=== PATIENT | female | born 1930 | race Caucasian/White ===

== ENCOUNTER 2018-02-02 00:04 | Inpatient (IN) ==
[2018-02-02] MEDS ORDERED: Naloxone Inj 2 MG/2 ML Vial ONE (00:14)
[2018-02-02] MEDS: Propofol 1000 mg/100 ml Inj 1,000 MG/100 ML BOTTLE IV.CONT PRN ×3 (00:17→17:06)
[2018-02-02] MEDS ORDERED: Succinylcholine Inj 200 MG/10 ML Vial IV.PUSH ONE (00:30)
[2018-02-02] MEDS ORDERED: Etomidate Inj 40 MG/20 ML Vial IV.PUSH ONE (00:30)
[2018-02-02] MEDS ORDERED: Propofol 1000 mg/100 ml Inj 1,000 MG/100 ML BOTTLE ONE (00:33)
--- NOTE | 2018-02-02 00:45 | ED ---
HPI General Chief Complaint: Altered Mental Status Stated Complaint: AMS Time Seen by Provider: 02/02/18 00:29 Source: patient and EMS Mode of arrival: EMS Limitations: altered mental status History of Present Illness HPI narrative: Patient is in 87-year-old female, on Eliquis, who presents with complaint of altered mental status. Per EMS she was discharged from another hospital this evening and went to her nursing facility. He was then found by nursing staff with decreased responsiveness and EMS reports that her GCS was 9 on their arrival. Blood glucose was greater than 100 and she was sinus tachycardia on the monitor but otherwise stable. On arrival here the patient will intermittently moan but does not provide any other information. MD complaint: Reports altered mental status and decreased responsiveness Onset (ago): unknown Consistency of symptoms: unknown Related Data Allergies Allergy/AdvReac Type Severity Reaction Status Date / Time No Known Allergies Allergy Verified 02/02/18 00:29 Review of Systems ROS Unobtainable ROS Unobtainable: unobtainable due to mental status PMFSH Medical History Medical History A-fib (Acute) Hypercholesterolemia (Acute) Hypertension (Acute) Hypothyroidism (Acute) Pneumonia (Acute) Surgical history unknown (Acute) Family History Family History Other Family history unobtainable Social History Social History Substance History: Unable to Obtain Smoking Status: Unknown if ever smoked How Often Do You Have a Drink Containing Alcohol: Unable to Obtain Exam Narrative Exam Narrative: GENERAL: Elderly female, unresponsive SKIN: Focused skin assessment warm/dry. Multiple bruises. HEAD: Atraumatic. Normocephalic. EYES: Pupils equal and round, approximately 2-3 mm and reactive. No scleral icterus. No injection or drainage. ENT: No nasal bleeding or discharge. Mucous membranes pink and dry. NECK: Trachea midline. No JVD. CARDIOVASCULAR: Tachycardic but regular. No murmur appreciated. Intact and equal pulses. RESPIRATORY: No accessory muscle use. Rhonchi and diminished breath sounds throughout. GASTROINTESTINAL: Abdomen soft, distended. Hepatic and splenic margins not palpable. MUSCULOSKELETAL: No obvious deformities. No clubbing. No cyanosis. Slight edema present in all 4 extremities. NEUROLOGICAL: Moaning incoherently. She externally rotated her left arm once but is otherwise not moving any of her extremities. PSYCHIATRIC: Unable to assess. Course Initial Documented Vital Signs Respiratory Rate 14 02/02/18 00:05 Last Documented Vital Signs Temperature 97.4 F L 02/02/18 02:11 Pulse Rate 84 02/02/18 02:11 Respiratory Rate 14 02/02/18 02:11 Blood Pressure 84/62 L 02/02/18 02:11 Pulse Oximetry 99 02/02/18 01:30 Procedures Intubation Sedative: etomidate Mg Given: 20 Paralytic: succinylcholine Mg Given: 150 Laryngoscope: Paras ET Tube Size: 7.5 ET Tube Uncuffed: Yes Tube Secured Depth (cm): 22 Tube Secured Location: lips Tube Placement Confirmation: visualized tube passing through cords, equal breath sounds bilaterally, no breath sounds over epigastrium and confirmation by capnometry Patient Tolerated Procedure: well Intubation Complications: hypoxia Critical Care Time Critical Care Time: Yes Total Critical Care Time: 35 Attestation: Aggregate critical care time was 35 minutes. Time to perform other separately billable procedures was not included in the critical care time. My time did not include minutes spent treating any other patients simultaneously or on activities that did not directly contribute to the patient's treatment. The services I provided to this patient were to treat and/or prevent clinically significant deterioration that could result in: , deterioration, disability, aspiration. I provided critical care services requiring my management, as noted below: Chart data review, documentation time, medication orders and management, vital sign assessments/reviewing monitor data, ordering and reviewing lab tests, ordering and interpreting/reviewing x-rays and diagnostic studies, care of the patient and discussion of the patient with the admitting physicians. Medical Decision Making MDM Narrative Medical decision making narrative: Patient is an 87 yof who presents with altered mental status after being discharged from another facility. GCS < 8 on arrival at which time she was intubated for airway protection. BP was in the 180s and she was started on propofol for sedation. CT head unremarkable. CXR concerning for pneumonia at which time blood cultures, lactate and antibiotics were ordered. MAPs > 65 (with BP still elevated) thus she was not given large fluid boluses as her cardiac function is unknown. She has been admitted to the ICU under Dr Carrera, [employer] consultant. Records from OSH were obtained and showed she was discharged < 24 hours ago after an admission for pneumonia. Medical Screen Exam Complete: Yes Emergency Medical Condition: Yes Differential Diagnosis Differential Diagnosis: Differential diagnosis includes but is not limited to intracranial hemorrhage, acute coronary syndrome, medication overdose, electrolyte abnormality. Medical Records Medical records reviewed: Yes I reviewed the patient's medical records. Lab Data Lab results reviewed: Yes I reviewed the patient's lab results. Result diagrams: 02/02/18 00:45 02/02/18 00:45 Lab Results 02/02/18 02/02/18 02/02/18 Range/Units 00:18 00:45 00:45 WBC 15.9 H (4.0-11.0) th/mm3 RBC 3.64 L (4.00-5.30) mil/mm3 Hgb 12.5 (11.6-15.3) gm/dL Hct 36.6 (35.0-46.0) % MCV 100.5 H (80.0-100.0) fL MCH 34.3 H (27.0-34.0) pg MCHC 34.1 (32.0-36.0) % RDW 15.0 (11.6-17.2) % Plt Count 338 (150-450) th/mm3 MPV 8.2 (7.0-11.0) fL Prelim Diff (Auto) Slide review pending Neut % (Auto) 80.4 H (16.0-70.0) % Lymph % (Auto) 11.9 (9.0-44.0) % Knox % (Auto) 7.2 (0.0-8.0) % Eos % (Auto) 0.1 (0.0-4.0) % Baso % (Auto) 0.4 (0.0-2.0) % Neut # (Auto) 12.8 H (1.8-7.7) th/mm3 Lymph # (Auto) 1.9 (1.0-4.8) th/mm3 Knox # (Auto) 1.1 H (0.0-0.9) th/mm3 Eos # (Auto) 0.0 (0.0-0.4) th/mm3 Baso # (Auto) 0.1 (0.0-0.2) th/mm3 WBC Differential . Diff Scan Auto diff confirmed Differential Comment . Platelet Estimate Normal (Normal) Platelet Morphology Normal (Normal) Sodium 137 (136-145) meq/L Potassium 4.1 (3.5-5.1) meq/L Chloride 100 (98-107) meq/L Carbon Dioxide 27.5 (21.0-32.0) meq/L Anion Gap 10 (5-15) meq/L BUN 15 (7-18) mg/dL Creatinine 0.56 (0.50-1.00) mg/dL Estimated GFR Greater than 89 (>89) mL/min POC Glucose 116 H (68-110) mg/dl Random Glucose 121 H (74-106) mg/dL Lactic Acid (0.4-2.0) mmol/L Calcium 8.6 (8.5-10.1) mg/dL Magnesium 1.9 (1.5-2.5) mg/dL Total Bilirubin 0.3 (0.2-1.0) mg/dL AST 49 H (15-37) U/L ALT 58 H (10-53) U/L Alkaline Phosphatase 38 L (45-117) U/L Ammonia (11-32) mcmol/L Total Creatine Kinase 76 (26-192) U/L Troponin I 0.03 (0.02-0.05) ng/mL Total Protein 6.0 L (6.4-8.2) g/dL Albumin 2.2 L (3.4-5.0) g/dL TSH 1.450 (0.358-3.740) uIU/mL Urine Color (Yellw/Straw) Urine Clarity (Clear) Urine pH (5.0-8.5) Ur Specific [place] (1.002-1.035) Urine Protein (Neg-Trace) mg/dL Urine Glucose (UA) (Negative) mg/dL Urine Ketones (Negative) mg/dL Urine Occult Blood (Negative) Urine Nitrate (Negative) Urine Bilirubin (Negative) Urine Urobilinogen (Less than 2) mg/dL Ur Leukocyte Esterase (Negative) Urine RBC (0-3) /hpf Urine WBC (0-5) /hpf Ur Squamous Epith Cells (0-5) /hpf Urine Bacteria (None) /hpf Hyaline Casts (0-3) /lpf Granular Casts (None) /lpf Urine Mucus (Occasional) /lpf Micro UA Comment Ur Microscopic Review Urine Culture Comments Urine Opiates Screen (Neg) Ur Barbiturates Screen (Neg) Ur Amphetamines Screen (Neg) U Benzodiazepines Scrn (Neg) Urine Cocaine Screen (Neg) U Cannabinoids Screen (Neg) 02/02/18 02/02/18 02/02/18 Range/Units 00:55 00:55 00:55 WBC (4.0-11.0) th/mm3 RBC (4.00-5.30) mil/mm3 Hgb (11.6-15.3) gm/dL Hct (35.0-46.0) % MCV (80.0-100.0) fL MCH (27.0-34.0) pg MCHC (32.0-36.0) % RDW (11.6-17.2) % Plt Count (150-450) th/mm3 MPV (7.0-11.0) fL Prelim Diff (Auto) Neut % (Auto) (16.0-70.0) % Lymph % (Auto) (9.0-44.0) % Knox % (Auto) (0.0-8.0) % Eos % (Auto) (0.0-4.0) % Baso % (Auto) (0.0-2.0) % Neut # (Auto) (1.8-7.7) th/mm3 Lymph # (Auto) (1.0-4.8) th/mm3 Knox # (Auto) (0.0-0.9) th/mm3 Eos # (Auto) (0.0-0.4) th/mm3 Baso # (Auto) (0.0-0.2) th/mm3 WBC Differential Diff Scan Differential Comment Platelet Estimate (Normal) Platelet Morphology (Normal) Sodium (136-145) meq/L Potassium (3.5-5.1) meq/L Chloride (98-107) meq/L Carbon Dioxide (21.0-32.0) meq/L Anion Gap (5-15) meq/L BUN (7-18) mg/dL Creatinine (0.50-1.00) mg/dL Estimated GFR (>89) mL/min POC Glucose (68-110) mg/dl Random Glucose (74-106) mg/dL Lactic Acid 2.8 H (0.4-2.0) mmol/L Calcium (8.5-10.1) mg/dL Magnesium (1.5-2.5) mg/dL Total Bilirubin (0.2-1.0) mg/dL AST (15-37) U/L ALT (10-53) U/L Alkaline Phosphatase (45-117) U/L Ammonia 37 H (11-32) mcmol/L Total Creatine Kinase (26-192) U/L Troponin I (0.02-0.05) ng/mL Total Protein (6.4-8.2) g/dL Albumin (3.4-5.0) g/dL TSH (0.358-3.740) uIU/mL Urine Color Yellow (Yellw/Straw) Urine Clarity Clear (Clear) Urine pH 5.0 (5.0-8.5) Ur Specific [place] 1.028 (1.002-1.035) Urine Protein 30 H (Neg-Trace) mg/dL Urine Glucose (UA) Negative (Negative) mg/dL Urine Ketones Negative (Negative) mg/dL Urine Occult Blood Negative (Negative) Urine Nitrate Negative (Negative) Urine Bilirubin Negative (Negative) Urine Urobilinogen Less than 2 (Less than 2) mg/dL Ur Leukocyte Esterase Negative (Negative) Urine RBC 1 (0-3) /hpf Urine WBC 1 (0-5) /hpf Ur Squamous Epith Cells <1 (0-5) /hpf Urine Bacteria Rare H (None) /hpf Hyaline Casts 23 (0-3) /lpf Granular Casts 19 (None) /lpf Urine Mucus Few H (Occasional) /lpf Micro UA Comment Cath-culture ind Ur Microscopic Review Not Reportable Urine Culture Comments Cath-cult indicated Urine Opiates Screen (Neg) Ur Barbiturates Screen (Neg) Ur Amphetamines Screen (Neg) U Benzodiazepines Scrn (Neg) Urine Cocaine Screen (Neg) U Cannabinoids Screen (Neg) 02/02/18 Range/Units 01:00 WBC (4.0-11.0) th/mm3 RBC (4.00-5.30) mil/mm3 Hgb (11.6-15.3) gm/dL Hct (35.0-46.0) % MCV (80.0-100.0) fL MCH (27.0-34.0) pg MCHC (32.0-36.0) % RDW (11.6-17.2) % Plt Count (150-450) th/mm3 MPV (7.0-11.0) fL Prelim Diff (Auto) Neut % (Auto) (16.0-70.0) % Lymph % (Auto) (9.0-44.0) % Knox % (Auto) (0.0-8.0) % Eos % (Auto) (0.0-4.0) % Baso % (Auto) (0.0-2.0) % Neut # (Auto) (1.8-7.7) th/mm3 Lymph # (Auto) (1.0-4.8) th/mm3 Knox # (Auto) (0.0-0.9) th/mm3 Eos # (Auto) (0.0-0.4) th/mm3 Baso # (Auto) (0.0-0.2) th/mm3 WBC Differential Diff Scan Differential Comment Platelet Estimate (Normal) Platelet Morphology (Normal) Sodium (136-145) meq/L Potassium (3.5-5.1) meq/L Chloride (98-107) meq/L Carbon Dioxide (21.0-32.0) meq/L Anion Gap (5-15) meq/L BUN (7-18) mg/dL Creatinine (0.50-1.00) mg/dL Estimated GFR (>89) mL/min POC Glucose (68-110) mg/dl Random Glucose (74-106) mg/dL Lactic Acid (0.4-2.0) mmol/L Calcium (8.5-10.1) mg/dL Magnesium (1.5-2.5) mg/dL Total Bilirubin (0.2-1.0) mg/dL AST (15-37) U/L ALT (10-53) U/L Alkaline Phosphatase (45-117) U/L Ammonia (11-32) mcmol/L Total Creatine Kinase (26-192) U/L Troponin I (0.02-0.05) ng/mL Total Protein (6.4-8.2) g/dL Albumin (3.4-5.0) g/dL TSH (0.358-3.740) uIU/mL Urine Color (Yellw/Straw) Urine Clarity (Clear) Urine pH (5.0-8.5) Ur Specific [place] (1.002-1.035) Urine Protein (Neg-Trace) mg/dL Urine Glucose (UA) (Negative) mg/dL Urine Ketones (Negative) mg/dL Urine Occult Blood (Negative) Urine Nitrate (Negative) Urine Bilirubin (Negative) Urine Urobilinogen (Less than 2) mg/dL Ur Leukocyte Esterase (Negative) Urine RBC (0-3) /hpf Urine WBC (0-5) /hpf Ur Squamous Epith Cells (0-5) /hpf Urine Bacteria (None) /hpf Hyaline Casts (0-3) /lpf Granular Casts (None) /lpf Urine Mucus (Occasional) /lpf Micro UA Comment Ur Microscopic Review Urine Culture Comments Urine Opiates Screen Neg (Neg) Ur Barbiturates Screen Neg (Neg) Ur Amphetamines Screen Neg (Neg) U Benzodiazepines Scrn Pos H (Neg) Urine Cocaine Screen Neg (Neg) U Cannabinoids Screen Neg (Neg) Imaging Data Attestation: I personally reviewed and interpreted this imaging study as follows : Radiologist's impression: Chest X-Ray 02/02/18 00:29 CONCLUSION: 1. ET tube tip in good position. 2. Consolidative infiltrates in the right upper and bilateral lower lungs. Head CT 02/02/18 00:29 CONCLUSION: 1. No acute findings in the brain. 2. Age-appropriate atrophy. . Cervical Spine CT 02/02/18 00:30 CONCLUSION: 1. No evidence of fracture or compression deformity. 2. Moderate severity degenerative changes throughout the cervical spine similar to recent MRI. 3. Right pleural effusion and areas of consolidation in the right upper lung. Chest X-Ray 02/02/18 02:37 CONCLUSION: Central line in good position. No evidence of pneumothorax. Discharge Plan Discharge Disposition Patient Disposition: 30 Still Patient Discharge Condition Condition: Critical Discharge Details Diagnosis: Pneumonia, Sepsis, Acute alteration in mental status, Respiratory failure Physicians Team ED Provider: Milagro Chavez Primary Care Provider: Cam Murillo Attending Provider: Brooke Carrera Discharge Interventions Interventions: Vital Signs Last Done: 02/02/18 02:11 Status ED Status: Admitted Patient
--- NOTE | 2018-02-02 00:55 | XR ---
EXAM DATE: 02/02/2018 12:52 AM EDT AGE/SEX: 87 years / Female INDICATIONS: Status post ET tube placement. CLINICAL DATA: This is the patient's initial encounter. Patient reports that signs and symptoms have been present for 1 day and indicates a pain score of Nonresponsive. MEDICAL/SURGICAL HISTORY: Non-responsive. Non-responsive. COMPARISON: No prior exams available for comparison. FINDINGS: ET tube tip is 3 cm above the gorge. Gastric tube traverses the [id number]. Patchy partially cons olidative infiltrates are present in the right upper lobe, left lower lobe and right lower lobe. Ther e is loss of delineation of both hemidiaphragms. The heart is upper limits normal size. No evidence o f pneumothorax. CONCLUSION: 1. ET tube tip in good position. 2. Consolidative infiltrates in the right upper and bilateral lower lungs. Electronically signed by: Zion Galeano MD 02/02/2018 12:54 AM EDT
[2018-02-02 00:56] LABS: Baso # (Auto) 0.1 th/mm3 (0.0-0.2); Baso % (Auto) 0.4 % (0.0-2.0); Eos % (Auto) 0.1 % (0.0-4.0); Hematocrit 36.6 % (35.0-46.0); Hemoglobin 12.5 gm/dL (11.6-15.3); Lymph # (Auto) 1.9 th/mm3 (1.0-4.8); Lymph % (Auto) 11.9 % (9.0-44.0); Mean Corpuscular HGB Conc 34.1 % (32.0-36.0); Mean Corpuscular Hemoglobin 34.3 pg (27.0-34.0); Mean Corpuscular Volume 100.5 fL (80.0-100.0); Mean Platelet Volume 8.2 fL (7.0-11.0); Mono # (Auto) 1.1 th/mm3 (0.0-0.9); Mono % (Auto) 7.2 % (0.0-8.0); Neut # (Auto) 12.8 th/mm3 (1.8-7.7); Neut % (Auto) 80.4 % (16.0-70.0); Platelet Count 338 th/mm3 (150-450); Red Blood Count 3.64 mil/mm3 (4.00-5.30); White Blood Count 15.9 th/mm3 (4.0-11.0)
[2018-02-02] MEDS ORDERED: Vancomycin Inj 1,000 MG in Sodium Chlor 0.9% Inj 250 ML IV.SIG STA ×2 (00:58→01:41)
[2018-02-02] MEDS ORDERED: Piperacil/Tazo 4.5 GM Premix 4.5 GM/100 ML BAG IV.SIG STA (00:58)
[2018-02-02] MEDS ORDERED: Azithromycin Inj 500 MG in Sodium Chlor 0.9% Inj 250 ML IV.SIG STA (00:58)
[2018-02-02] MEDS ORDERED: Naloxone Inj 2 MG/2 ML Vial IV.PUSH ONE (01:16)
--- NOTE | 2018-02-02 01:18 | P.HPCC ---
History of Present Illness Service: Critical care medicine Primary Care Physician: Cam Murillo DO Chief Complaint: Altered mental status History of Present Illness: 87-year-old female with past medical history of hypertension, hyperlipidemia, atrial fibrillation recently prescribed anticoagulation with Eliquis, hypothyroidism who was brought to [facility] emergency department from [facility] via [facility] due to altered mental status. She had been admitted to [facility] earlier in the day with GCS 15 after recent hospitalization at [facility]. When vitals were checked at ~23: 30 she was noted to have GCS 9. She was moaning on arrival and was given Narcan 2 mg IV without improvement. She was intubated for airway protection. CXR demonstrates right upper/middle and lower lobe opacities and left basilar opacity. She was given Zosyn and Vancomycin in the ED. She reportedly was more alert following intubation but did have ABG so unknown if she was hypercapneic. She was admitted to [facility], [place] 01/29-02/01 after presenting with generalized weakness and fever. She was found to have pneumonia and new onset atrial fibrillation with RVR. She was given Cardizem for rate control. She had mild troponin elevation (0.337). She underwent diagnostic cardiac catheterization by Dr. Ortiz, report is not available but impression was demand ischemia. 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 She was prescribed Eliquis at discharge. She was treated for CAP with ceftriaxone and azithromycin. She had a CT abd/pelvis on 01/28 that showed no acute abnormality. She had cholelithiasis and bilateral renal cysts. There were bilateral pleural effusions. - Diagnosis (1) Respiratory failure (2) Encephalopathy acute (3) Macrocytosis without anemia (4) HCAP (healthcare-associated pneumonia) (5) Severe sepsis (6) Leukocytosis (7) Atrial fibrillation (8) Essential (primary) hypertension (9) HLD (hyperlipidemia) (10) Hypothyroidism (11) Lactic acidemia (12) Pleural effusion (13) High transaminase levels (14) Hyperammonemia Review of Systems unobtainable due to endotracheal tube PMFSH - History History Provided By: Services Manager / EMT - Medical History Medical History: Medical History (Last Updated 02/02/18 @ 03:07 by Brooke Carrera MD) A-fib Hypercholesterolemia Hypertension Hypothyroidism Pneumonia Surgical history unknown - Family History Family History: Family History (Last Updated 02/02/18 @ 03:08 by Brooke Carrera MD) Other Family history unobtainable - Social History I have reviewed the patient's Social History: Yes - Tobacco History Smoking Status: Unknown if ever smoked Medications and Allergies Active Medications: Active Medications Propofol (Diprivan 1000 Mg/100 Ml Inj) 1,000 mg in 100 mls @ 0 mls/hr IV.CONT TITRATE PRN; Protocol PRN Reason: Per Protocol Azithromycin 500 mg/ Sodium (Chloride) 250 mls @ 250 mls/hr IV.SIG STAT STA Stop: 02/02/18 01:57 Vancomycin HCl 1,000 mg/ (Sodium Chloride) 260 mls @ 250 mls/hr IV.SIG STAT STA Stop: 02/02/18 02:00 Piperacillin/Tazobactam/Dextrose (Zosyn 4.5 Gm Premix) 4.5 gm in 100 mls @ 200 mls/hr IV.SIG STAT STA Stop: 02/02/18 01:27 Sodium Chloride (Ns Flush) 2 ml IV.FLUSH PRN PRN PRN Reason: FLUSH AFTER USING IV ACCESS Sodium Chloride (Ns Flush) 2 ml IV.FLUSH PRN PRN PRN Reason: FLUSH AFTER USING IV ACCESS Allergies Allergy/AdvReac Type Severity Reaction Status Date / Time No Known Allergies Allergy Verified 02/02/18 00:29 Home Medications Medication Instructions Recorded Confirmed Type Saccharomyces boulardii 250 mg PO BID 02/02/18 02/02/18 History apixaban 2.5 mg PO BID 02/02/18 02/02/18 History azithromycin 500 mg PO DAILY 02/02/18 02/02/18 History doxycycline hyclate 100 mg PO BID 02/02/18 02/02/18 History hydrochlorothiazide 25 mg PO DAILY 02/02/18 02/02/18 History levothyroxine 88 mcg PO DAILY 02/02/18 02/02/18 History lisinopril 5 mg PO DAILY 02/02/18 02/02/18 History loratadine 10 mg PO DAILY 02/02/18 02/02/18 History metoprolol succinate 25 mg PO DAILY 02/02/18 02/02/18 History naproxen 375 mg PO BID 02/02/18 02/02/18 History paroxetine HCl 40 mg PO DAILY 02/02/18 02/02/18 History simvastatin 40 mg PO QPM 02/02/18 02/02/18 History tramadol 50 mg PO BID PRN 02/02/18 02/02/18 History Results - Labs CBC & Chem 7: 02/03/18 03:44 02/03/18 17:00 Labs: Short CBC 02/02/18 Range/Units 00:45 WBC 15.9 H (4.0-11.0) th/mm3 Hgb 12.5 (11.6-15.3) gm/dL Hct 36.6 (35.0-46.0) % Plt Count 338 (150-450) th/mm3 - Imaging Impressions Chest X-Ray 02/02/18 00:29 CONCLUSION: 1. ET tube tip in good position. 2. Consolidative infiltrates in the right upper and bilateral lower lungs. Exam Vital signs: Vital Signs 02/02/18 00:44 02/02/18 00:46 02/02/18 01:05 Pulse Rate 109 H Respiratory Rate 14 14 Blood Pressure 181/107 H Pulse Oximetry 100 98 Intake & Output 02/01/18 02/01/18 02/02/18 06:59 18:59 06:59 Weight 65 kg Narrative: GENERAL: Elderly critically ill-appearing female who has been intubated. SKIN: Cool, delayed cap refill. HEAD: Atraumatic. Normocephalic. EYES: Pupils equal and round, 3 mm reactive 3 mm bilaterally. No scleral icterus. No injection or drainage. ENT: No nasal bleeding or discharge. Mucous membranes moist. NECK: Trachea midline. No JVD. CARDIOVASCULAR: Irregularly irregular, A. fib on the monitor with rate in the 80s. No murmurs rubs or gallops. RESPIRATORY: Orotracheally intubated. On PRBC. Coarse rhonchorous breath sounds bilaterally, diminished right base. GASTROINTESTINAL: Abdomen soft, non-tender, nondistended. Bowel sounds hypoactive. MUSCULOSKELETAL: Extremities without clubbing, cyanosis. Trace pedal edema NEUROLOGICAL: Septic Shock Reassessment Septic shock perfusion: reassessment completed Caprini VTE Risk Assessment Caprini VTE Risk Assessment: Moderate/High Risk (score >= 2) VTE Pharmacological Exception Reason: Documented Caprini Risk Assessment Model: Point Value = 1 Point Value = 2 Point Value = 3 Point Value = 5 Age 41-60 Minor surgery BMI > 25 kg/m2 Swollen legs Varicose veins or History of unexplained or recurrent spontaneous Oral contraceptives or hormone replacement Sepsis (< 1 month) Serious lung disease, including pneumonia (< 1 month) Abnormal pulmonary function Acute myocardial infarction Congestive heart failure (< 1 month) History of inflammatory bowel disease Medical patient at bed rest Age 61-74 Arthroscopic surgery Major open surgery (> 45 min) Laparoscopic surgery (> 45 min) Malignancy Confined to bed (> 72 hours) Immobilizing plaster cast Central venous access Age >= 75 History of VTE Family history of VTE Factor V Leiden Prothrombin [id number] Lupus anticoagulant Anticardiolipin antibodies Elevated serum homocysteine Heparin-induced thrombocytopenia Other congenital or acquired thrombophilia Stroke (< 1 month) Elective arthroplasty Hip, pelvis, or leg fracture Acute spinal cord injury (< 1 month) Prophylaxis Regimen: Total Risk Factor Score Risk Level Prophylaxis Regimen 0-1 Low Early ambulation 2 Moderate Order ONE of the following: *Sequential Compression Device (SCD) *Heparin 5000 units SQ BID 3-4 Higher Order ONE of the following medications: *Heparin 5000 units SQ TID *Enoxaparin/Lovenox 40 mg SQ daily (WT < 150 kg, CrCl > 30 mL/min) *Enoxaparin/Lovenox 30 mg SQ daily (WT < 150 kg, CrCl > 10-29 mL/min) *Enoxaparin/Lovenox 30 mg SQ BID (WT < 150 kg, CrCl > 30 mL/min) AND/OR *Sequential Compression Device (SCD) 5 or more Highest Order ONE of the following medications: *Heparin 5000 units SQ TID (Preferred with Epidurals) *Enoxaparin/Lovenox 40 mg SQ daily (WT < 150 kg, CrCl > 30 mL/min) *Enoxaparin/Lovenox 30 mg SQ daily (WT < 150 kg, CrCl > 10-29 mL/min) *Enoxaparin/Lovenox 30 mg SQ BID (WT < 150 kg, CrCl > 30 mL/min) AND *Sequential Compression Device (SCD) 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 - Other specified diseases of blood and blood-forming organs Status: Chronic (4) HCAP (healthcare-associated pneumonia) Code(s): J18.9 - Pneumonia, unspecified organism Status: Acute (5) Severe sepsis Code(s): A41.9 - Sepsis, unspecified organism; R65.20 - Severe sepsis without septic shock Status: Acute (6) Leukocytosis Code(s): D72.829 - Elevated white blood cell count, unspecified Status: Acute (7) Atrial fibrillation Code(s): I48.91 - Unspecified atrial fibrillation Status: Chronic (8) Essential (primary) hypertension Code(s): I10 - Essential (primary) hypertension Status: Chronic (9) HLD (hyperlipidemia) Code(s): E78.5 - Hyperlipidemia, unspecified Status: Chronic (10) Hypothyroidism Code(s): E03.9 - Hypothyroidism, unspecified Status: Chronic (11) Lactic acidemia Code(s): E87.2 - Acidosis Status: Acute (12) Pleural effusion Code(s): J90 - Pleural effusion, not elsewhere classified Status: Acute (13) High transaminase levels Code(s): R74.0 - Nonspecific elevation of levels of transaminase and lactic acid dehydrogenase [LDH] Status: Acute (14) Hyperammonemia Code(s): E72.20 - Disorder of urea cycle metabolism, unspecified Status: Acute - Assessment and Plan Plan: NEURO: Acute encephalopathy suspect secondary to sepsis. CT brain 02/02/18 demonstrates atrophy TSH is within normal limits. Check B12 level. Mild hyperammonemia lactulose 30 mL po . Follow-up ammonia Propofol for sedation. Versed prn. Target RASS -2. Daily sedation vacation. Hold paroxetine 80 mg p.o. daily (may require linezolid if diagnosed with MRSA pneumonia) Hold tramadol 50 mg p.o. daily RESP: Acute respiratory failure Right pleural effusion Intubated in the emergency department 26 for airway protection. CXR demonstrates R pneumonia. ETT position satisfactory DuoNeb every 6 hours Albuterol every 2 hours as needed Right pleural effusion was noted on CT C-spine. Will obtain noncontrasted CT chest. May require chest tube placement CV: Hypertension Hyperlipidemia Atrial fibrillation on chronic anticoagulation with Eliquis Lactic acidemia Monitor blood pressure. Give 1 L normal saline bolus. D5 LR at 125 mL/h. Levophed to maintain mean arterial pressure greater than 65. Obtain limited 2D echo Initial troponin negative. Will trend. Reportedly recent cardiac catheterization per Dr. Howie Ortiz at [facility], report not available but impression was demand ischemia and ?Takotsubo cardiomyopathy.. Hold metoprolol succinate 25 mg p.o. daily, lisinopril 5 mg p.o. daily, HCTZ 25 mg p.o. jojo due to hypotension. Hold simvastatin 40 mg p.o. daily due to transaminase elevation. GI: Constipation Mild transaminase elevation F/u CMP. Per nursing report no bowel movement for several days. N.p.o. currently. CT abdomen and pelvis has been ordered per ED. Low suspicion for this is source of sepsis. Will change to noncontrasted study to minimize nephrotoxicity. FEN/RENAL: Currently creatinine is normal. Monitor intake and output. Monitor electrolytes. Replace electrolytes as indicated per ICU electrolyte replacement protocol. Magnesium is acceptable. Will check phosphorus. ID: Severe sepsis HCAP vs aspiration pneumonia Leukocytosis Blood cultures sent in the emergency department. Send sputum culture. Send urine Legionella and pneumococcal antigen. Follow-up influenza screen. Follow-up CT chest/abdomen/pelvis. Reviewed records from outside hospital. Blood culture from 01/28 had 1 out of 4 blood cultures was positive for coag negative staph which was likely contaminant. Received Zosyn, azithromycin, vancomycin in the emergency department. Will avoid combination of Zosyn and vancomycin at this time and continue cefepime, Flagyl, azithromycin, vancomycin to cover for healthcare associated organisms as well as aspiration. Will narrow antibiotics based on culture data. 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 Follow-up coags Hold eliquis 2.5 mg po bid as may require chest tube. ENDO: Euglycemic on arrival. Hypothyroidism TSH was normal on admission. Continue levothyroxine 88 mcg p.o. daily. PROPH: SCD for DVT prophylaxis. Reportedly had been prescribed Eliquis, though it is unclear whether she had received any. In any case she will may require chest tube placement so we will hold pharmacologic anticoagulation at this time. Protonix 40 mg IV daily for stress ulcer prophylaxis ACCESS: Left IJ central venous line placed in ED 02/02/18 #1 Patient is full code. According to records from discharge from [facility] she had no advanced directives. She is critically ill and at high risk for further deterioration and . She was hypotensive with very difficult peripheral IV access and required emergent central venous line placement. Attempted to contact her daughter, Aarti Obregon, at 03:30. There was no answer. Critical care time 60 minutes exclusive of separately billable procedures.
[2018-02-02 01:19] LABS: Alkaline Phosphatase 38 U/L (45-117); Troponin I 0.03 ng/mL (0.02-0.05)
[2018-02-02 01:20] LABS: Alanine Aminotransferase 58 U/L (10-53); Albumin 2.2 g/dL (3.4-5.0); Anion Gap 10 meq/L (5-15); Aspartate Aminotransferase 49 U/L (15-37); Blood Urea Nitrogen 15 mg/dL (7-18); Calcium 8.6 mg/dL (8.5-10.1); Carbon Dioxide 27.5 meq/L (21.0-32.0); Chloride 100 meq/L (98-107); Creatine Kinase 76 U/L (26-192); Glomerular Filtration Rate Greater Than 89 mL/min (>89); Glucose,Random 121 mg/dL (74-106); Magnesium 1.9 mg/dL (1.5-2.5); Potassium 4.1 meq/L (3.5-5.1); Sodium 137 meq/L (136-145)
[2018-02-02 01:23] LABS: Bacteria,Urine Rare /hpf; Bilirubin,Urine Negative (Negative); Clarity,Urine Clear (Clear); Color,Urine Yellow (Yellw/Straw); Glucose,Urine (UA) Negative (Negative); Hyaline Casts,Urine 23 /lpf (0-3); Leukocyte Esterase,Urine Negative (Negative); Mucus,Urine Few /lpf (Occasional); Nitrite,Urine Negative (Negative); Specific Gravity,Urine 1.028 (1.002-1.035); Squamous Epithelial Cell,Urine <1 /hpf (0-5)
[2018-02-02 01:26] LABS: Amphetamine Screen,Urine Neg (Neg); Barbiturate Screen,Urine Neg (Neg); Cannabinoid Screen,Urine Neg (Neg); Cocaine Screen,Urine Neg (Neg)
[2018-02-02 01:27] LABS: Platelet Estimate Normal (Normal); Platelet Morphology Normal (Normal)
[2018-02-02 01:28] LABS: Opiate Screen,Urine Neg (Neg)
--- NOTE | 2018-02-02 01:34 | CT ---
EXAM DATE: 02/02/2018 1:16 AM EDT AGE/SEX: 87 years / Female INDICATIONS: Altered mental status. CLINICAL DATA: This is the patient's initial encounter. Patient reports that signs and symptoms have been present for 1 day and indicates a pain score of Nonresponsive. MEDICAL/SURGICAL HISTORY: Non-responsive. Non-responsive. RADIATION DOSE: 56.35 CTDI (mGy) COMPARISON: No prior exams available for comparison. TECHNIQUE: CT of the head without contrast. Using automated exposure control and adjustment of the mA and/or kV according to patient size, radiation dose was kept as low as reasonably achievable to ob tain optimal diagnostic quality images. DICOM format image data is available electronically for revi ew and comparison. FINDINGS: Cerebrum: The ventricles are normal for age. No evidence of midline shift, mass lesion, hemorrhage or acute infarction. No extraaxial fluid collections are seen. Posterior Fossa: The cerebellum and brainstem are intact. The 4th ventricle is midline. The cerebe llopontine angle is unremarkable. Extracranial: The visualized portion of the orbits is intact. Skull: The calvaria is intact. No evidence of skull fracture. CONCLUSION: 1. No acute findings in the brain. 2. Age-appropriate atrophy. . Electronically signed by: Zion Galeano MD 02/02/2018 1:32 AM EDT
--- NOTE | 2018-02-02 01:43 | CT ---
EXAM DATE: 02/02/2018 1:17 AM EDT AGE/SEX: 87 years / Female INDICATIONS: Trauma; altered mental status. CLINICAL DATA: This is the patient's initial encounter. Patient reports that signs and symptoms have been present for 1 day and indicates a pain score of Nonresponsive. MEDICAL/SURGICAL HISTORY: Non-responsive. Non-responsive. RADIATION DOSE: 18.66 CTDI (mGy) COMPARISON: [facility], MR CERVICAL SPINE W/O CONTRAST, 12/04/2017. . TECHNIQUE: Contiguous axial images were obtained using helical multirow detector technique. The vol umetric data was post-processed with multiplanar reconstruction in oblique axial, sagittal, and coron al planes. Using automated exposure control and adjustment of the mA and/or kV according to patient s ize, radiation dose was kept as low as reasonably achievable to obtain optimal diagnostic quality cristy ges. DICOM format image data is available electronically for review and comparison. FINDINGS: There is fusion of the C6-7 level. Moderate degenerative changes are present C3-C6 with interspace n arrowing, endplate sclerosis, and osteophyte formation. Vertebral body height is maintained. Minimal anterolisthesis at C2-3 and T1 to the similar to prior MR in November 2017. No compression deformities seen. The posterior elements are in normal alignment without evidence of locked or perched facets. Th e atlantoaxial articulation is intact. Right pleural effusion and patchy areas of consolidation in th e visualized right upper lung. C2-3: No fracture seen. Asymmetric facet joint hypertrophy on the right side without significant truman ral foraminal stenosis. C3-4: No fracture seen. Moderate severity bilateral neural foraminal stenosis due to endplate and fa cet joint hypertrophy. C4-5: No fracture seen. Moderate severity left-sided neural foraminal stenosis. C5-6: No fracture seen. Moderate severity bilateral neural foraminal stenosis. C6-7: No fracture seen. The neural foramina are patent. C7-T1: No fracture seen. The neural foramina are patent. CONCLUSION: 1. No evidence of fracture or compression deformity. 2. Moderate severity degenerative changes throughout the cervical spine similar to recent MRI. 3. Right pleural effusion and areas of consolidation in the right upper lung. Electronically signed by: Zion Galeano MD 02/02/2018 1:41 AM EDT
[2018-02-02] MEDS ORDERED: Norepinephrine Inj 4 MG/4 ML Ampul ONE (02:20)
[2018-02-02] MEDS ORDERED: Sod Chloride 0.9% Inj 1,000 ML IV.SIG SCH (02:30)
--- NOTE | 2018-02-02 02:48 | P.PCN ---
Date of procedure: 02/02/18 Procedure: DATE: 02/02/18 CENTRAL LINE PLACEMENT: Left internal jugular vein. INDICATION: Central venous access CONSENT Patient patient is not capacitated for medical decision-making. Procedure was performed emergently as she is hypotensive and in need of central line access, essentially no peripheral IV in place. DESCRIPTION OF THE PROCEDURE The patient was placed in supine position, mild Trendelenburg. The skin was cleansed with Chloraprep x3. Additional barrier precautions included large sterile drape, sterile gloves, sterile gown, face mask, and hat. 1 % lidocaine was used for local anesthesia. Under direct ultrasound guidance and on single attempt, the vein was accessed with an introducer needle. The guide wire was advanced and the tract was dilated. Using Seldinger technique a 7 Tajik 20 cm antimicrobial coated triple-lumen catheter was advanced to a depth of 17 centimeters. The guide wire was removed. All ports had good return of dark venous blood and flushed easily with saline. The central line was secured with 2.0 silk after Statlock would not secure adequately. A sterile dressing with antibiotic disc was applied. ESTIMATED BLOOD LOSS: Minimal COMPLICATIONS: No apparent complications. STAT chest x-ray is pending.
[2018-02-02] MEDS ORDERED: Vancomycin Consult Pharmacy OTHER PRN (02:52)
[2018-02-02] MEDS ORDERED: Bisacodyl 10 MG Supp RECTAL PRN (02:53)
[2018-02-02] MEDS ORDERED: Acetaminophen 325 MG Tablet PO PRN (02:53)
--- NOTE | 2018-02-02 02:58 | XR ---
EXAM DATE: 02/02/2018 2:53 AM EDT AGE/SEX: 87 years / Female INDICATIONS: Central line placement. CLINICAL DATA: This is the patient's initial encounter. Patient reports that signs and symptoms have been present for 1 day and indicates a pain score of Nonresponsive. MEDICAL/SURGICAL HISTORY: Non-responsive. Non-responsive. COMPARISON: C, CHEST 1V SINGLE AP, 02/02/2018. . FINDINGS: Interval placement of left internal jugular catheter with tip projected at the cavoatrial junction. N o evidence of pneumothorax. ET tube tip well above the gorge. Gastric tube traverses the field-of-vi ew. Persistent stable patchy areas of consolidation throughout the right lung and consolidation in th e left lower lung. CONCLUSION: Central line in good position. No evidence of pneumothorax. Electronically signed by: Zion Galeano MD 02/02/2018 2:56 AM EDT
[2018-02-02] MEDS ORDERED: Potassium Chloride 25 MEQ Effervescent Tablet PO PRN (03:46)
[2018-02-02] MEDS ORDERED: Potassium Phosphate 500 MG Soluble Tablet PO PRN ×2 (03:46)
[2018-02-02] MEDS ORDERED: Magnesium Sulfate Inj 2 GM in Sodium Chlor 0.9% Inj 96 ML IV.SIG PRN (03:46)
[2018-02-02] MEDS ORDERED: Potassium Phosphate Inj 30 MMOL in Sodium Chlor 0.9% Inj 250 ML IV.SIG PRN (03:46)
[2018-02-02] MEDS ORDERED: Sodium Phosphate Inj 30 MMOL in Sodium Chlor 0.9% Inj 250 ML IV.SIG PRN (03:46)
[2018-02-02] MEDS ORDERED: Magnesium Sulfate Inj 4 GM in Sodium Chlor 0.9% Inj 92 ML IV.SIG PRN (03:46)
[2018-02-02] MEDS ORDERED: Potassium Chlor 40 mEq Premix 40 MEQ/100 ML PIGGYBACK IV.SIG PRN (03:46)
[2018-02-02] MEDS ORDERED: Magnesium Oxide 400 MG Tablet PO PRN (03:46)
[2018-02-02] MEDS ORDERED: Potassium Chlor 20 mEq Premix 20 MEQ/100 ML PIGGYBACK IV.SIG PRN ×2 (03:46)
[2018-02-02] MEDS ORDERED: Chlorhexidine Gluconate 2% 1 Pack (2 Cloths) TOPICAL PRN (04:00)
[2018-02-02 04:01] LABS: Activated Partial Thrombo Time 30.8 sec (24.3-30.1); INR 1.1 Ratio; Prothrombin Time 11.2 sec (9.8-11.6)
[2018-02-02 04:23] LABS: Troponin I 0.06 ng/mL (0.02-0.05)
[2018-02-02 04:25] LABS: ABG Base Excess 5.5 mmol/L (-2-2); ABG PCO2 42 mmHg (38-42); ABG PO2 410 mmHg (61-120)
[2018-02-02 04:37] LABS: Folate 19.2 ng/mL (3.1-17.5)
[2018-02-02 04:44] LABS: Acetaminophen 3.1 mcg/mL (10.0-30.0); Phosphorus 3.1 mg/dL (2.5-4.9)
--- NOTE | 2018-02-02 04:45 | CT ---
EXAM DATE: 02/02/2018 4:13 AM EDT AGE/SEX: 87 years / Female INDICATIONS: Distention. CLINICAL DATA: This is the patient's initial encounter. Patient reports that signs and symptoms have been present for 1 day and indicates a pain score of Nonresponsive. MEDICAL/SURGICAL HISTORY: Non-responsive. Non-responsive. RADIATION DOSE: 5.51 CTDI (mGy) ; Combined studies COMPARISON: No prior exams available for comparison. TECHNIQUE: Multiple contiguous axial images were obtained through the abdomen. Images were obtained using multiple row detector helical technique. Using automated exposure control and adjustment of the mA and/or kV according to patient size, radiation dose was kept as low as reasonably achievable to o btain optimal diagnostic quality images. DICOM format image data is available electronically for rev iew and comparison. FINDINGS: Lower Lungs: Bilateral pleural effusions, large on the right and moderate on the left. Liver: The liver has a homogeneous density without space-occupying lesion. There is no dilation of th e biliary tree. No calcified gallstones seen. There is some layering hyperdensity within the lumen of the gallbladder, possibly representing sludge. Spleen: Homogeneous density without enlargement. Pancreas: Unremarkable without mass or calcification. Kidneys: Normal in size and shape. No evidence of mass or hydronephrosis. Adrenal Glands: Unremarkable. Aorta: The aorta and proximal iliac vessels are grossly unremarkable without aneurysmal dilation. Bowel/Mesentery: Gastric tube in place. No dilated loops of small or large bowel. Abdominal Wall: Intact. Retroperitoneum: No evidence of adenopathy in the retrocrural, para-aortic, or deep pelvic regions. Bladder: Nondistended. Cruz catheter in place. Reproductive Organs: No abnormal masses or calcifications seen. Inguinal: The inguinal region is unremarkable without evidence of adenopathy. Bony Structures: Degenerative changes in the lumbar spine and left lumbar curvature. CONCLUSION: 1. No dilated loops of small or large bowel and no evidence of ascites. 2. Large right and moderate size left pleural effusion. 3. Probable layering sludge in the gallbladder. Electronically signed by: Zion Galeano MD 02/02/2018 4:44 AM EDT
[2018-02-02] MEDS: Oral Hygiene Kit OROPHARYNG SCH ×3 (04:49→17:06)
[2018-02-02] MEDS: Dextrose 5%/Lactated Ringer's 1,000 ML IV.CONT SCH ×3 (04:49→20:04)
[2018-02-02] MEDS: Chlorhexidine Gluconate 2% 1 Pack (2 Cloths) TOPICAL SCH (04:49)
--- NOTE | 2018-02-02 04:50 | CT ---
EXAM DATE: 02/02/2018 4:13 AM EDT AGE/SEX: 87 years / Female INDICATIONS: Pleural effusion. CLINICAL DATA: This is the patient's initial encounter. Patient reports that signs and symptoms have been present for 1 day and indicates a pain score of Nonresponsive. MEDICAL/SURGICAL HISTORY: Non-responsive. Non-responsive. RADIATION DOSE: 5.51 CTDI (mGy) ; Combined studies COMPARISON: [facility], CHEST 1V SINGLE AP, 02/02/2018. . TECHNIQUE: Multiple contiguous axial images were obtained through the chest without contrast. Image s were obtained in suspended respiration using multiple row detector helical technique. Using automa aleja exposure control and adjustment of the mA and/or kV according to patient size, radiation dose was kept as low as reasonably achievable to obtain optimal diagnostic quality images. DICOM format imag e data is available electronically for review and comparison. FINDINGS: Lungs: Bilateral airspace consolidative infiltrates involving most of the posterior segments of the right lung and scattered subsegmental areas in the left lung. No evidence of pneumothorax. Mediastinum: There is good visualization of the great vessels of the middle mediastinum. No evidenc e of mediastinal or hilar adenopathy/mass. Pleurae: There is a large right pleural effusion extending to the apex and measuring in excess of 5 cm AP thickness. There is a moderate size left pleural effusion measuring 2.5 cm. Axillae: Unremarkable. Bony Structures: Unremarkable. Miscellaneous: ET tube in place. Central line tip of the cavoatrial junction. CONCLUSION: 1. Bilateral pleural effusions, large on the right and moderate on the left. 2. Multi segmental consolidation in the right lung and scattered areas of subsegmental consolidation in the left lung. Electronically signed by: Zion Galeano MD 02/02/2018 4:48 AM EDT
[2018-02-02] MEDS ORDERED: Lidocaine 1%/Epinephrine 1:100,000 Inj 20 ML Vial ONE (08:40)
--- NOTE | 2018-02-02 09:08 | P.PCN ---
Date of procedure: 02/02/18 Pre-op diagnosis: Large right pl effusion, Pneumonia, septic shock Post-op diagnosis: same Procedure: Procedure: Right 20 F chest tube placement Indication: Septic shock with pneumonia, suspicion of right empyema Procedure was done as an emergency as the patient was not worsening septic shock from pneumonia and concern for empyema. Unable to reach daughter and patient's condition deteriorating Details of procedure: Patient is intubated and presently sedated with propofol infusion. The patient was laid supine. The lateral chest wall was cleaned with ChloraPrep x4. Regional sterile drapes were applied. 1% lidocaine with epinephrine was used for local anesthesia and injected into the subcutaneous and deep muscle tissues. Initial attempt at the pigtail catheter placement was unsuccessful as I was unable to draw back fluid. A 1.5 cm skin incision was made with a scalpel blade. A hemostat was used for blunt dissection. The hemostat was entered into the pleural space superior to the rib with release of jin of pleural fluid and air. I explored the wound with my finger. A size 20 [place] chest tube was inserted with a Lani clamp into the pleural cavity and directed posteriorly and superiorly. 3-0 silk was used to close the wound and 0.0 silk was used to secure the chest tube. A sterile Vaseline gauze dressing was applied. The chest tube was connected to a Pleur-evac drainage system. There was a 1+ air leak. Initial output (including what came out onto the drapes initially) was approximately 1000 mL of a low clear pleural fluid. Patient tolerated procedure well and blood loss was less than 3 mL. Postprocedure chest x-ray is pending. Pleural fluid would be is sent for multiple studies Anesthesia: local Surgeon: Theron Roblero Estimated blood loss (mL): 3 Pathology: other Condition: critical Disposition: ICU (Pleural fluid studies sent)
[2018-02-02] MEDS: Pantoprazole Inj 40 MG Vial IV.PUSH SCH (09:33)
[2018-02-02] MEDS: Senna/Docusate Sodium 8.6/50 MG Tablet PO SCH ×2 (09:33→20:06)
[2018-02-02] MEDS: Levothyroxine 88 MCG Tablet NG/OG SCH (09:33)
[2018-02-02] MEDS: Chlorhexidine 0.12% Oral Kit 15 ML UDC OROPHARYNG SCH ×2 (09:34→20:05)
--- NOTE | 2018-02-02 09:40 | XR ---
EXAM DATE: 02/02/2018 9:32 AM EDT AGE/SEX: 87 years / Female INDICATIONS: Chest tube placement. CLINICAL DATA: This is the patient's subsequent encounter. Patient reports that signs and symptoms h ave been present for 1 day and indicates a pain score of Nonresponsive. MEDICAL/SURGICAL HISTORY: Non-responsive. Non-responsive. COMPARISON: [facility] [place] 1V SINGLE AP, 02/02/2018. . FINDINGS: Endotracheal tube in good position. Left central line in superior vena cava. Right chest tube with sm all right-sided apical pneumothorax. Consolidation in the lung overall slightly improved since earlie r exam, predominantly at the right lung base. Left basilar and perihilar airspace disease persists wi th small left effusion. CONCLUSION: Placement of right-sided chest tube with small right pneumothorax present. Improved right lung consol idation and effusion since chest tube placement. Endotracheal tube, nasogastric tube and left central line unchanged. Electronically signed by: Ramiro Epps MD 02/02/2018 9:38 AM EDT
--- NOTE | 2018-02-02 13:35 | ECHRPT ---
Indication: SHORTNESS OF BREATH CONCLUSIONS Normal left ventricular size. Wall thickness is normal. The left ventricular systolic function is severely reduced with an estimated ejection fraction in th e range of 30-35% with apical akinesis. The left atrial size is [id number]-[id number]-sbkchtrdtp dilated. Suspect the right atrial size is mildly dilated. Mild mitral valve regurgitation. Moderate mitral annular calcification. Diffuse calcification of the aortic valve. There is mild to moderate tricuspid valve regurgitation. Trivial pulmonary valve regurgitation. The inferior vena cava was not well visualized. There is a small pericardial effusion present. A moderate left sided pleural effusion is noted. BP: / HR: Rhythm: MEASUREMENTS (Male / Female) Normal Values Technical Quality: 2D ECHO LV Diastolic Diameter PLAX 3.5 cm 4.2 - 5.9 / 3.9 - 5.3 cm LV Systolic Diameter PLAX 2.7 cm IVS Diastolic Thickness 1.2 cm 0.6 - 1.0 / 0.6 - 0.9 cm LVPW Diastolic Thickness 1.0 cm 0.6 - 1.0 / 0.6 - 0.9 cm LV Relative Wall Thickness 0.6 RV Internal Dim ED PLAX 2.4 cm LVOT Diameter 2.0 cm Aortic Root Diameter 2.3 cm LA Systolic Diameter LX 3.6 cm 3.0 - 4.0 / 2.7 - 3.8 cm LV Ejection Fraction MOD BP 28.3 % >= 55 % LV Ejection Fraction MOD 4C 31.0 % LV Ejection Fraction 4C AL 33.6 % LV Ejection Fraction MOD 2C 31.3 % LV Ejection Fraction 2C AL 33.2 % M-MODE Aortic Root Diameter MM 2.6 cm LA Systolic Diameter MM 4.0 cm LA Ao Ratio MM 1.5 AV Cusp Separation MM 1.7 cm DOPPLER AV Peak Velocity 111.0 cm/s AV Peak Gradient 4.9 mmHg LVOT Peak Velocity 66.1 cm/s LVOT Peak Gradient 1.7 mmHg AV Area Cont Eq pk 1.9 cm Mitral E Point Velocity 89.8 cm/s Mitral A Point Velocity 19.7 cm/s Mitral E to A Ratio 4.6 TV Peak Velocity 172.0 cm/s TR Peak Velocity 248.0 cm/s TR Peak Gradient 24.6 mmHg Right Atrial Pressure 10.0 mmHg Pulmonary Artery Systolic Pressu 34.6 mmHg Right Ventricular Systolic Press 34.6 mmHg PV Peak Velocity 70.8 cm/s PV Peak Gradient 2.0 mmHg FINDINGS LEFT VENTRICLE Normal left ventricular size. Wall thickness is normal. The left ventricular systolic function is severely reduced with an estimated ejection fraction in th e range of 30-35% with apical akinesis. RIGHT VENTRICLE Normal right ventricular size and systolic function. LEFT ATRIUM The left atrial size is nebc-ay-xalansclqn dilated. RIGHT ATRIUM Suspect the right atrial size is mildly dilated. MITRAL VALVE Mild mitral valve regurgitation. Moderate mitral annular calcification. AORTIC VALVE Diffuse calcification of the aortic valve. TRICUSPID VALVE There is mild to moderate tricuspid valve regurgitation. PULMONARY VALVE Trivial pulmonary valve regurgitation. VESSELS The inferior vena cava was not well visualized. PERICARDIUM There is a small pericardial effusion present. A moderate left sided pleural effusion is noted. Mamadou Myles MD (Electronically Signed) Final Date:02 February 2018 13:34
[2018-02-02 14:38] LABS: Total Protein,Pleural Fluid 1.5 gm/dL
[2018-02-02] MEDS: Vancomycin Inj 1,000 MG in Sodium Chlor 0.9% Inj 250 ML IV.SIG SCH (15:22)
--- NOTE | 2018-02-02 15:36 | XR ---
EXAM DATE: 02/02/2018 3:32 PM EDT AGE/SEX: 87 years / Female INDICATIONS: Evaluation of pneumothorax acquired from right sided chest tube. CLINICAL DATA: This is the patient's subsequent encounter. Patient reports that signs and symptoms h ave been present for 2 days and indicates a pain score of Nonresponsive. MEDICAL/SURGICAL HISTORY: Non-responsive. Non-responsive. COMPARISON: [facility], CHEST 1V SINGLE AP, 02/02/2018. . FINDINGS: There is increase in size of right-sided pneumothorax extending from the apex between the fourth and fifth posterior rib approximate 2.8 cm of apical pleural separation. There is subcutaneous air seen. Right-sided chest tube in place. Left jugular line tip overlies the expected location of the SVC. End otracheal tube tip terminates 1.7 cm above the gorge. There is consolidation in the right upper lobe and patchy left lung airspace disease. Cardiomegaly. CONCLUSION: Right-sided pneumothorax is increased in size. Bilateral infiltrates. Electronically signed by: Ramon Bocanegra MD 02/02/2018 3:35 PM EDT
[2018-02-02 15:58] LABS: Lymphocytes,Pleural Fluid 64 %; Mesothelial,Pleural Fluid 5 %; Monocytes,Pleural Fluid 1 %
[2018-02-02 16:01] LABS: RBC,Pleural Fluid 8753 /mm3 (0-0)
[2018-02-02 16:02] LABS: Neutrophils,Pleural Fluid 28 %
--- NOTE | 2018-02-02 16:52 | P.PCN ---
Date of procedure: 02/02/18 Pre-op diagnosis: Right pneumothorax expanding despite CT Post-op diagnosis: same Procedure: Right anterior pigtail chest tube placement Details of procedure: The patient was laid flat in supine position. The right anterior chest wall was cleaned with ChloraPrep twice. Regional sterile drapes were applied. 1% lidocaine was used for local anesthesia and injected into the subcutaneous and deep muscle tissues at the site marked by ultrasound. A 0.25 cm skin incision was made with a scalpel blade. Insertion needle was placed angled superiorly and posteriorly and the insertion needle was entered into the pleural space superior to the rib and jin of air was obtained. Guidewire was placed in site was dilated. A size 10 [place] chest tube was inserted into the pleural cavity using Seldinger technique with initial air leak which rapidly resolved. 3.0 silk was used to to secure the chest tube along with StayFix fixation device. The chest tube was connected to a Pleur-evac drainage system via vinyl connecting tube. Postprocedure chest x-ray is pending at this time Anesthesia: local Surgeon: Theron Roblero Estimated blood loss (mL): 0 Pathology: none sent Condition: stable Disposition: ICU
--- NOTE | 2018-02-02 16:58 | XR ---
EXAM DATE: 02/02/2018 4:53 PM EDT AGE/SEX: 87 years / Female INDICATIONS: Status post right sided chest tube placement. CLINICAL DATA: This is the patient's subsequent encounter. Patient reports that signs and symptoms h ave been present for 1 day and indicates a pain score of Nonresponsive. MEDICAL/SURGICAL HISTORY: Non-responsive. Non-responsive. COMPARISON: [facility] – [place], CHEST 1V SINGLE AP, 02/02/2018. . FINDINGS: There is placement of an additional small caliber right chest tube with resolution of previous right pneumothorax. Larger caliber right chest tube remains. Bilateral airspace disease is stable. Endotrac heal tube and nasogastric tube in good position. Left central line in superior vena cava. CONCLUSION: Placement of additional small caliber right chest tube with resolution of previous right pneumothorax . Subcutaneous air in the right chest wall. Electronically signed by: Ramiro Epps MD 02/02/2018 4:56 PM EDT
[2018-02-03] MEDS: Oral Hygiene Kit OROPHARYNG SCH ×4 (01:45→17:49)
[2018-02-03] MEDS: Azithromycin Inj 500 MG in Sodium Chlor 0.9% Inj 250 ML IV.SIG SCH (01:48)
[2018-02-03] MEDS: Vancomycin Inj 1,000 MG in Sodium Chlor 0.9% Inj 250 ML IV.SIG SCH ×2 (02:52→15:19)
[2018-02-03] MEDS: Dextrose 5%/Lactated Ringer's 1,000 ML IV.CONT SCH (02:53)
[2018-02-03 04:11] LABS: Baso % (Auto) 0.1 % (0.0-2.0); Eos # (Auto) 0.1 th/mm3 (0.0-0.4); Hematocrit 30.9 % (35.0-46.0); Hemoglobin 10.8 gm/dL (11.6-15.3); Lymph # (Auto) 1.5 th/mm3 (1.0-4.8); Lymph % (Auto) 11.2 % (9.0-44.0); Mean Corpuscular HGB Conc 35.1 % (32.0-36.0); Mean Corpuscular Hemoglobin 34.3 pg (27.0-34.0); Mean Corpuscular Volume 97.9 fL (80.0-100.0); Mean Platelet Volume 8.3 fL (7.0-11.0); Mono # (Auto) 0.7 th/mm3 (0.0-0.9); Mono % (Auto) 5.3 % (0.0-8.0); Neut # (Auto) 11.3 th/mm3 (1.8-7.7); Neut % (Auto) 82.4 % (16.0-70.0); Platelet Count 257 th/mm3 (150-450); Red Blood Count 3.16 mil/mm3 (4.00-5.30); White Blood Count 13.7 th/mm3 (4.0-11.0)
[2018-02-03 04:48] LABS: Alanine Aminotransferase 28 U/L (10-53); Albumin 1.4 g/dL (3.4-5.0); Alkaline Phosphatase 22 U/L (45-117); Anion Gap 7 meq/L (5-15); Aspartate Aminotransferase 19 U/L (15-37); Blood Urea Nitrogen 12 mg/dL (7-18); Calcium 7.5 mg/dL (8.5-10.1); Carbon Dioxide 31.1 meq/L (21.0-32.0); Chloride 104 meq/L (98-107); Glomerular Filtration Rate Greater Than 89 mL/min (>89); Glucose,Random 134 mg/dL (74-106); Magnesium 1.4 mg/dL (1.5-2.5); Phosphorus 2.7 mg/dL (2.5-4.9); Sodium 142 meq/L (136-145); Total Protein 4.1 g/dL (6.4-8.2)
[2018-02-03 05:01] LABS: Potassium 2.8 meq/L (3.5-5.1)
[2018-02-03] MEDS: Levothyroxine 88 MCG Tablet NG/OG SCH (05:19)
[2018-02-03] MEDS: Potassium Chlor 40 mEq Premix 40 MEQ/100 ML PIGGYBACK IV.SIG PRN ×2 (05:19→09:15)
[2018-02-03] MEDS: Chlorhexidine Gluconate 2% 1 Pack (2 Cloths) TOPICAL SCH (05:37)
--- NOTE | 2018-02-03 08:09 | XR ---
EXAM DATE: 02/03/2018 8:02 AM EDT AGE/SEX: 87 years / Female INDICATIONS: Follow up pneumothorax. CLINICAL DATA: This is the patient's subsequent encounter. Patient reports that signs and symptoms h ave been present for 4 - 6 days and indicates a pain score of Nonresponsive. MEDICAL/SURGICAL HISTORY: Non-responsive. Non-responsive. COMPARISON: [facility], CHEST 1V SINGLE AP, 02/02/2018. . FINDINGS: Portable AP view of the chest demonstrates a normal-sized cardiac silhouette with calcification of th e aorta. ETT, NG tube, and left IJ line remain present. Multiple EKG lines overlie the patient. 2 rig ht chest tubes are present and no pneumothorax is visualized. There is persistent airspace opacity in the right upper and right midlung zone and there is a left basilar/retrocardiac pleural-parenchymal opacity. CONCLUSION: 1. 2 right chest tubes remain present and no pneumothorax is visualized. 2. Stable right upper and midlung zone airspace consolidation and left basilar pleural-parenchymal o pacity. Electronically signed by: Osbaldo Green MD 02/03/2018 8:07 AM EDT
[2018-02-03] MEDS: Senna/Docusate Sodium 8.6/50 MG Tablet PO SCH ×2 (08:19→20:13)
[2018-02-03] MEDS: Chlorhexidine 0.12% Oral Kit 15 ML UDC OROPHARYNG SCH ×2 (08:19→21:10)
[2018-02-03] MEDS: Pantoprazole Inj 40 MG Vial IV.PUSH SCH (08:20)
--- NOTE | 2018-02-03 08:48 | P.PNCC ---
Subjective Subjective Remarks/Hospital Course: 87-year-old female with past medical history of hypertension, hyperlipidemia, atrial fibrillation recently prescribed anticoagulation with Eliquis, hypothyroidism who was brought to [facility] emergency department from [facility] via [facility] due to altered mental status. She had been admitted to [facility] earlier in the day with GCS 15 after recent hospitalization at [facility]. When vitals were checked at ~23: 30 she was noted to have GCS 9. She was moaning on arrival and was given Narcan 2 mg IV without improvement. She was intubated for airway protection. CXR demonstrates right upper/middle and lower lobe opacities and left basilar opacity. She was given Zosyn and Vancomycin in the ED. She reportedly was more alert following intubation but did have ABG so unknown if she was hypercapneic. She was admitted to [facility] 01/29-02/01 after presenting with generalized weakness and fever. She was found to have pneumonia and new onset atrial fibrillation with RVR. She was given Cardizem for rate control. She had mild troponin elevation (0.337). She underwent diagnostic cardiac catheterization by Dr. Ortiz, report is not available but impression was demand ischemia. 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 She was prescribed Eliquis at discharge. She was treated for CAP with ceftriaxone and azithromycin. She had a CT abd/pelvis on 01/28 that showed no acute abnormality. She had cholelithiasis and bilateral renal cysts. There were bilateral pleural effusions. SUBJ 02/03: Critically ill remains intubated sedated. Large bore chest tube was placed for large pleural effusion yesterday to the right side, for residual pneumothorax anterior pigtail chest tube also placed. X-ray today shows no pneumothorax but persistent consolidation bilateral lung. WBC count is slightly improved hemodynamically more stable but remains critically ill. Potassium and magnesium getting replaced Objective Vital Signs / I&O: Vital Signs 02/02/18 09:00 02/02/18 09:06 02/02/18 09:08 Temperature 100.1 F H Pulse Rate 87 76 Respiratory Rate 16 Blood Pressure 134/80 130/75 Pulse Oximetry 85 L 02/02/18 09:10 02/02/18 09:12 02/02/18 09:14 Temperature Pulse Rate 81 83 79 Respiratory Rate 14 14 14 Blood Pressure 134/74 138/75 132/74 Pulse Oximetry 99 99 86 L 02/02/18 09:16 02/02/18 09:18 02/02/18 09:20 Temperature Pulse Rate 77 80 78 Respiratory Rate 19 14 14 Blood Pressure 141/80 H 149/84 H 142/67 H Pulse Oximetry 77 L 78 L 93 L 02/02/18 09:22 02/02/18 09:24 02/02/18 09:26 Temperature Pulse Rate 79 82 83 Respiratory Rate 14 14 14 Blood Pressure 141/75 H 149/68 H 148/67 H Pulse Oximetry 93 L 94 L 88 L 02/02/18 09:28 02/02/18 09:30 02/02/18 09:32 Temperature Pulse Rate 77 78 77 Respiratory Rate 14 14 14 Blood Pressure 145/65 H 146/74 H 138/75 Pulse Oximetry 94 L 93 L 89 L 02/02/18 09:34 02/02/18 09:36 02/02/18 09:38 Temperature Pulse Rate 79 78 81 Respiratory Rate 14 14 14 Blood Pressure 142/76 H 150/82 H 111/55 L Pulse Oximetry 90 L 79 L 75 L 02/02/18 09:40 02/02/18 09:42 02/02/18 09:44 Temperature Pulse Rate 78 77 79 Respiratory Rate 14 14 14 Blood Pressure 85/49 L 75/47 L 72/49 L Pulse Oximetry 75 L 75 L 74 L 02/02/18 09:46 02/02/18 09:48 02/02/18 09:50 Temperature Pulse Rate 75 74 78 Respiratory Rate 14 14 14 Blood Pressure 86/61 L 133/91 H 157/93 H Pulse Oximetry 75 L 100 98 02/02/18 10:00 02/02/18 10:01 02/02/18 10:15 Temperature Pulse Rate 82 81 79 Respiratory Rate 14 14 14 Blood Pressure 140/63 113/56 L Pulse Oximetry 92 L 89 L 86 L 02/02/18 10:30 02/02/18 10:45 02/02/18 11:00 Temperature Pulse Rate 73 75 78 Respiratory Rate 14 14 14 Blood Pressure 108/57 L 102/55 L 115/74 Pulse Oximetry 100 100 91 L 02/02/18 11:15 02/02/18 11:30 02/02/18 11:45 Temperature Pulse Rate 79 82 81 Respiratory Rate 14 14 14 Blood Pressure 118/69 148/67 H 150/80 H Pulse Oximetry 83 L 75 L 76 L 02/02/18 12:00 02/02/18 12:15 02/02/18 12:30 Temperature 97 F L Pulse Rate 86 87 81 Respiratory Rate 14 14 14 Blood Pressure 144/95 H 148/76 H 143/86 H Pulse Oximetry 75 L 77 L 76 L 02/02/18 12:45 02/02/18 12:57 02/02/18 13:00 Temperature Pulse Rate 88 85 Respiratory Rate 14 14 14 Blood Pressure 159/89 H Pulse Oximetry 76 L 100 100 02/02/18 13:15 02/02/18 13:30 02/02/18 13:45 Temperature Pulse Rate 85 84 84 Respiratory Rate 14 14 14 Blood Pressure 149/73 H 141/74 H 152/64 H Pulse Oximetry 100 100 99 02/02/18 14:00 02/02/18 14:15 02/02/18 14:30 Temperature Pulse Rate 85 88 84 Respiratory Rate 14 14 14 Blood Pressure 135/59 L 132/63 Pulse Oximetry 97 98 97 02/02/18 14:45 02/02/18 15:00 02/02/18 15:15 Temperature Pulse Rate 83 90 88 Respiratory Rate 14 14 14 Blood Pressure 131/71 142/75 H 111/57 L Pulse Oximetry 100 81 L 99 02/02/18 15:30 02/02/18 15:45 02/02/18 16:00 Temperature Pulse Rate 90 88 90 Respiratory Rate 20 14 16 Blood Pressure 123/62 120/58 L 123/94 H Pulse Oximetry 94 L 100 95 02/02/18 16:16 02/02/18 16:18 02/02/18 16:20 Temperature Pulse Rate 91 H 88 82 Respiratory Rate 25 H 16 25 H Blood Pressure 155/90 H 114/53 L 90/55 L Pulse Oximetry 92 L 98 97 02/02/18 16:23 02/02/18 16:25 02/02/18 16:27 Temperature Pulse Rate 86 90 82 Respiratory Rate 19 14 15 Blood Pressure 84/50 L 80/51 L 87/62 L Pulse Oximetry 100 98 99 02/02/18 16:30 02/02/18 16:32 02/02/18 16:35 Temperature Pulse Rate 86 85 90 Respiratory Rate 14 23 33 H Blood Pressure 126/69 122/73 140/97 H Pulse Oximetry 99 96 96 02/02/18 16:38 02/02/18 16:46 02/02/18 17:00 Temperature Pulse Rate 89 90 91 H Respiratory Rate 12 15 14 Blood Pressure 153/85 H 151/78 H 144/76 H Pulse Oximetry 100 100 100 02/02/18 17:15 02/02/18 17:30 02/02/18 17:35 Temperature 97.5 F L Pulse Rate 93 H 86 Respiratory Rate 14 16 14 Blood Pressure 165/72 H 129/67 Pulse Oximetry 100 93 L 100 02/02/18 17:46 02/02/18 18:00 02/02/18 19:00 Temperature 97.8 F Pulse Rate 89 92 H 90 Respiratory Rate 14 14 14 Blood Pressure 153/64 H 122/71 144/77 H Pulse Oximetry 97 100 98 02/02/18 19:20 02/02/18 19:30 02/02/18 20:00 Temperature 97.8 F Pulse Rate 94 H 95 H Respiratory Rate 14 16 14 Blood Pressure 142/87 H Pulse Oximetry 98 98 02/02/18 21:00 02/02/18 21:15 02/02/18 21:30 Temperature 97.8 F Pulse Rate 90 94 H 93 H Respiratory Rate 14 14 16 Blood Pressure 137/70 129/73 136/66 Pulse Oximetry 98 97 93 L 02/02/18 21:45 02/02/18 22:00 02/02/18 22:15 Temperature 97.8 F Pulse Rate 92 H 90 97 H Respiratory Rate 13 14 14 Blood Pressure 150/70 H 137/70 129/69 Pulse Oximetry 95 98 97 02/02/18 22:30 02/02/18 22:35 02/02/18 22:45 Temperature Pulse Rate 91 H 90 Respiratory Rate 14 15 14 Blood Pressure 121/71 114/76 Pulse Oximetry 97 96 95 02/02/18 23:00 02/02/18 23:15 02/02/18 23:30 Temperature 97.8 F Pulse Rate 92 H 92 H 97 H Respiratory Rate 14 14 15 Blood Pressure 122/66 123/73 142/66 H Pulse Oximetry 94 L 95 91 L 02/02/18 23:46 02/03/18 00:00 02/03/18 00:15 Temperature 97.7 F Pulse Rate 91 H 91 H 85 Respiratory Rate 15 5 L 0 L Blood Pressure 118/77 116/58 L 78/43 L Pulse Oximetry 99 100 98 02/03/18 00:17 02/03/18 00:20 02/03/18 00:29 Temperature Pulse Rate 87 90 92 H Respiratory Rate 0 L 14 21 Blood Pressure 74/42 L 87/52 L 140/69 Pulse Oximetry 97 98 100 02/03/18 00:30 02/03/18 01:00 02/03/18 01:30 Temperature 97.7 F Pulse Rate 94 H 90 89 Respiratory Rate 17 14 14 Blood Pressure 157/70 H 119/69 102/56 L Pulse Oximetry 100 100 100 02/03/18 01:59 02/03/18 02:00 02/03/18 02:30 Temperature 98 F Pulse Rate 90 91 H Respiratory Rate 15 14 14 Blood Pressure 113/71 113/62 Pulse Oximetry 100 100 100 02/03/18 03:00 02/03/18 03:17 02/03/18 03:30 Temperature 98 F Pulse Rate 90 87 91 H Respiratory Rate 14 14 14 Blood Pressure 106/64 102/57 L Pulse Oximetry 100 99 02/03/18 04:00 02/03/18 04:28 02/03/18 04:30 Temperature 98 F Pulse Rate 94 H 92 H Respiratory Rate 14 14 14 Blood Pressure 117/61 117/61 Pulse Oximetry 99 98 98 02/03/18 05:00 02/03/18 06:00 02/03/18 07:00 Temperature 98 F 98 F Pulse Rate 96 H 93 H 102 H Respiratory Rate 14 14 14 Blood Pressure 119/67 94/50 L Pulse Oximetry 99 99 02/03/18 07:41 Temperature Pulse Rate Respiratory Rate 14 Blood Pressure Pulse Oximetry 99 Intake & Output 02/02/18 02/03/18 02/03/18 18:59 06:59 18:59 Intake Total 2220 / 2220 2480 / 2480 350 / 350 Output Total 1150 / 1150 950 / 950 Balance 1070 / 1070 1530 / 1530 350 / 350 Intake: IV 2099 / 2099 2450 / 2450 350 / 350 D5W/LR Inj 1,000 ML @ 125 mls/ 1000 / 1000 2000 / 2000 hr IV.CONT .Q8H [facility] Rx#: [id number] Diprivan 1000 mg/100 ml Inj 1, 200 / 200 100 / 100 000 mg In 100 ml @ 5 MCG/KG/MIN 1.95 mls/hr IV.CONT TITRATE PRN Rx#:[id number] Azithromycin Inj 500 MG In NS 250 / 250 Inj 250 ML @ 250 mls/hr IV.SIG Q24H [facility] Rx#:[id number] Maxipime Inj 2,000 MG In NS Inj 200 / 200 100 / 100 100 ML @ 200 mls/hr IV.SIG Q8H [facility] Rx#:[id number] Vancomycin Inj 1,000 MG In NS 500 / 500 250 / 250 Inj 250 ML @ 250 mls/hr IV.SIG Q12H [facility] Rx#:[id number] Flagyl 500 MG Inj 100 ML @ 100 200 / 200 100 / 100 mls/hr IV.SIG Q8H [facility] Rx#: [id number] Oral 0 / 0 Tube Feeding 0 / 0 Tube Irrigant 120 / 120 30 / 30 Output: Urine Amount (Catheter) 300 / 300 800 / 800 Indwelling Urethral Catheter 300 / 300 800 / 800 Chest Tube Drainage 850 / 850 150 / 150 Right Upper Anterior 0 / 0 0 / 0 Right Upper Mid-Axillary Chest 850 / 850 150 / 150 Other: # Bowel Movements 0 0 Result Diagrams: 02/03/18 03:44 02/03/18 03:44 Objective Remarks: GENERAL: Elderly critically ill-appearing female who has been intubated. SKIN: Cool, delayed cap refill. HEAD: Atraumatic. Normocephalic. EYES: Pupils equal and round. No scleral icterus. No injection or drainage. ENT: No nasal bleeding or discharge. Orotracheally intubated NECK: Trachea midline. No JVD. CARDIOVASCULAR: Irregularly irregular, A. fib on the monitor with rate in the 80s. No murmurs rubs or gallops. RESPIRATORY: Orotracheally intubated. On PRVC. Coarse rhonchorous breath sounds bilaterally, diminished right base. Bilateral chest tubes to the right with no air leak. Large bore chest tube had 1 L output since placement yesterday GASTROINTESTINAL: Abdomen soft, non-tender, nondistended. Bowel sounds hypoactive. MUSCULOSKELETAL: Extremities without clubbing, cyanosis. NEUROLOGICAL: Patient is intubated heavily sedated with Versed infusion. Moves all extremities do not follow commands. 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 - Other specified diseases of blood and blood-forming organs Status: Chronic (4) HCAP (healthcare-associated pneumonia) Code(s): J18.9 - Pneumonia, unspecified organism Status: Acute (5) Severe sepsis Code(s): A41.9 - Sepsis, unspecified organism; R65.20 - Severe sepsis without septic shock Status: Acute (6) Leukocytosis Code(s): D72.829 - Elevated white blood cell count, unspecified Status: Acute (7) Atrial fibrillation Code(s): I48.91 - Unspecified atrial fibrillation Status: Chronic (8) Essential (primary) hypertension Code(s): I10 - Essential (primary) hypertension Status: Chronic (9) HLD (hyperlipidemia) Code(s): E78.5 - Hyperlipidemia, unspecified Status: Chronic (10) Hypothyroidism Code(s): E03.9 - Hypothyroidism, unspecified Status: Chronic (11) Lactic acidemia Code(s): E87.2 - Acidosis Status: Acute (12) Pleural effusion Code(s): J90 - Pleural effusion, not elsewhere classified Status: Acute (13) High transaminase levels Code(s): R74.0 - Nonspecific elevation of levels of transaminase and lactic acid dehydrogenase [LDH] Status: Acute (14) Hyperammonemia Code(s): E72.20 - Disorder of urea cycle metabolism, unspecified Status: Acute - Assessment and Plan Plan: NEURO: Toxic metabolic encephalopathy CT brain 02/02/18 demonstrates atrophy TSH is within normal limits. Normal to high B12 level. Mild hyperammonemia lactulose 30 mL po. Follow-up ammonia has corrected now 16 Propofol and versed for sedation Target RASS -2. Daily sedation vacation. Hold paroxetine 80 mg p.o. daily (may require linezolid if diagnosed with MRSA pneumonia) Hold tramadol 50 mg p.o. daily RESP: Acute respiratory failure Right pleural effusion, exudative Intubated in the emergency department 26 for airway protection. CXR demonstrates R pneumonia. 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 s/p 1 L normal saline bolus. Levophed to maintain mean arterial pressure greater than 65 now weaned off Limited 2D echo- LVEF 30-35% with apical akinesis. Mild to moderate tricuspid regurgitation DC IV fluid, start IV Lasix 40 mg every 12 with IV albumin Troponin only marginally elevated. Reportedly recent cardiac catheterization per Dr. Howie Ortiz at [facility], report not available but impression was demand ischemia and ?Takotsubo cardiomyopathy.. Hold metoprolol succinate 25 mg p.o. daily, lisinopril 5 mg p.o. daily, HCTZ 25 mg p.o. jojo due to hypotension. Hold simvastatin 40 mg p.o. daily due to transaminase elevation. Resume Eliquis GI: Constipation Mild transaminase elevation Malnutrition F/u CMP. Per nursing report no bowel movement for several days. CT abdomen and pelvis has been ordered per ED negative for acute finding Continue lactulose Start tube feeds with Jevity FEN/RENAL: Hypokalemia severe Currently creatinine is normal. Monitor intake and output. Monitor electrolytes. Replace electrolytes as indicated per ICU electrolyte replacement protocol. IV Lasix as above with potassium replacement ID: Severe sepsis HCAP vs aspiration pneumonia Leukocytosis Blood cultures sent in the emergency department. f/u sputum culture. Neg urine Legionella and pneumococcal antigen. Neg influenza screen. Pleural fluid studies show exudative fluid Reviewed records from outside hospital. Blood culture from 01/28 had 1 out of 4 blood cultures was positive for coag negative staph which was likely contaminant. Received Zosyn, azithromycin, vancomycin in the emergency department. Continue cefepime, Flagyl, azithromycin, vancomycin to cover for healthcare associated organisms as well as aspiration. Will narrow antibiotics based on culture data. HEME: Erythrocyte macrocytosis On chronic anticoagulation with Eliquis Follow-up coags Resume Eliquis 2.5 mg po bid ENDO: Euglycemic on arrival. Hypothyroidism TSH was normal on admission. Continue levothyroxine 88 mcg p.o. daily. PROPH: SCD for DVT prophylaxis. Resume Eliquis 2.5 mg twice daily. Protonix 40 mg IV daily for stress ulcer prophylaxis ACCESS: Left IJ central venous line placed in ED 02/02/18 #2 Patient is full code. According to records from discharge from [facility] she had no advanced directives. She is critically ill and at high risk for further deterioration and . Updated her daughter, Aarti Obregon, yesterday and today 02/03/2018 at the bedside Critical care time 40 minutes exclusive of separately billable procedures.
[2018-02-03] MEDS: Albumin Human 25% Inj 100 ML IV.SIG SCH ×2 (10:35→20:14)
[2018-02-03] MEDS: Beneprotein Powder Packet G-TUBE SCH ×3 (10:49→17:50)
[2018-02-03] MEDS: Potassium Chloride 25 MEQ Effervescent Tablet NG/OG SCH ×2 (10:58→20:13)
[2018-02-03] MEDS: Propofol 1000 mg/100 ml Inj 1,000 MG/100 ML BOTTLE IV.CONT PRN ×2 (11:32→23:59)
[2018-02-03] MEDS ORDERED: Pharmacy Ordered Lab Info OTHER ONE (14:45)
[2018-02-03] MEDS: fentaNYL Citrate Inj 100 MCG/2 ML Ampul IV PUSH PRN ×3 (19:20→22:02)
[2018-02-03] MEDS ORDERED: dilTIAZem Inj 125 MG in Sodium Chlor 0.9% Inj 100 ML IV.CONT PRN (22:39)
[2018-02-04] MEDS: Oral Hygiene Kit OROPHARYNG SCH ×4 (01:18→15:27)
[2018-02-04] MEDS: fentaNYL Citrate Inj 100 MCG/2 ML Ampul IV PUSH PRN ×3 (01:45→06:09)
[2018-02-04] MEDS: Azithromycin Inj 500 MG in Sodium Chlor 0.9% Inj 250 ML IV.SIG SCH (01:48)
[2018-02-04] MEDS: Vancomycin Inj 1,000 MG in Sodium Chlor 0.9% Inj 250 ML IV.SIG SCH (02:10)
[2018-02-04] MEDS: Chlorhexidine Gluconate 2% 1 Pack (2 Cloths) TOPICAL SCH (04:28)
[2018-02-04 04:37] LABS: Hematocrit 26.8 % (35.0-46.0); Hemoglobin 9.1 gm/dL (11.6-15.3); Mean Corpuscular HGB Conc 34.1 % (32.0-36.0); Mean Corpuscular Hemoglobin 34.2 pg (27.0-34.0); Mean Corpuscular Volume 100.5 fL (80.0-100.0); Mean Platelet Volume 8.3 fL (7.0-11.0); Platelet Count 232 th/mm3 (150-450); Red Blood Count 2.67 mil/mm3 (4.00-5.30); Red Cell Distribution Width 14.9 % (11.6-17.2); White Blood Count 13.7 th/mm3 (4.0-11.0)
--- NOTE | 2018-02-04 05:07 | XR ---
EXAM DATE: 02/04/2018 4:49 AM EDT AGE/SEX: 87 years / Female INDICATIONS: Shortness of breath, possible pulmonary disease. CLINICAL DATA: This is the patient's subsequent encounter. Patient reports that signs and symptoms h ave been present for 2 days and indicates a pain score of Nonresponsive. MEDICAL/SURGICAL HISTORY: Non-responsive. Non-responsive. COMPARISON: [facility], CHEST 1V SINGLE AP, 02/03/2018. . FINDINGS: ET tube tip well above the gorge. Gastric tube traverses the [id number]. Left central line tip at the cavoatrial junction. Right chest tube and right chest catheter stable in position. Persistent pa rtially consolidative infiltrates in the right upper lobe and left lower lobe consolidation. No evide nce of pneumothorax. CONCLUSION: Stable right upper and left lower lung consolidation. Electronically signed by: Zion Galeano MD 02/04/2018 5:05 AM EDT
[2018-02-04 05:12] LABS: Alanine Aminotransferase 19 U/L (10-53); Albumin 2.1 g/dL (3.4-5.0); Alkaline Phosphatase 21 U/L (45-117); Anion Gap 5 meq/L (5-15); Aspartate Aminotransferase 14 U/L (15-37); Blood Urea Nitrogen 15 mg/dL (7-18); Calcium 7.7 mg/dL (8.5-10.1); Carbon Dioxide 35.2 meq/L (21.0-32.0); Chloride 104 meq/L (98-107); Glomerular Filtration Rate Greater Than 89 mL/min (>89); Glucose,Random 108 mg/dL (74-106); Magnesium 1.6 mg/dL (1.5-2.5); Potassium 3.5 meq/L (3.5-5.1); Sodium 144 meq/L (136-145); Total Protein 4.7 g/dL (6.4-8.2)
[2018-02-04] MEDS: Levothyroxine 88 MCG Tablet NG/OG SCH (06:09)
--- NOTE | 2018-02-04 07:43 | P.PNCC ---
Subjective Subjective Remarks/Hospital Course: 87-year-old female with past medical history of hypertension, hyperlipidemia, atrial fibrillation recently prescribed anticoagulation with Eliquis, hypothyroidism who was brought to [facility] emergency department from [facility] via [facility] due to altered mental status. She had been admitted to [facility] earlier in the day with GCS 15 after recent hospitalization at [facility]. When vitals were checked at ~23: 30 she was noted to have GCS 9. She was moaning on arrival and was given Narcan 2 mg IV without improvement. She was intubated for airway protection. CXR demonstrates right upper/middle and lower lobe opacities and left basilar opacity. She was given Zosyn and Vancomycin in the ED. She reportedly was more alert following intubation but did have ABG so unknown if she was hypercapneic. She was admitted to [facility] 01/29-02/01 after presenting with generalized weakness and fever. She was found to have pneumonia and new onset atrial fibrillation with RVR. She was given Cardizem for rate control. She had mild troponin elevation (0.337). She underwent diagnostic cardiac catheterization by Dr. Ortiz, report is not available but impression was demand ischemia. 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 She was prescribed Eliquis at discharge. She was treated for CAP with ceftriaxone and azithromycin. She had a CT abd/pelvis on 01/28 that showed no acute abnormality. She had cholelithiasis and bilateral renal cysts. There were bilateral pleural effusions. SUBJ 02/03: Critically ill remains intubated sedated. Large bore chest tube was placed for large pleural effusion yesterday to the right side, for residual pneumothorax anterior pigtail chest tube also placed. X-ray today shows no pneumothorax but persistent consolidation bilateral lung. WBC count is slightly improved hemodynamically more stable but remains critically ill. Potassium and magnesium getting replaced 02/04: Patient remains intubated sedated. Clinically showing some signs of improvement though remaining critical. Urine output more than 6 L with diuresis. Chest x-ray shows persistent right upper lung and left lower lung consolidation. On sedation hold follows some commands. Chest tubes with 294 mL output, no air leak or pneumothorax on chest x-ray. Started on Cardizem infusion for A. fib with RVR Objective Vital Signs / I&O: Vital Signs 02/03/18 08:00 02/03/18 08:30 02/03/18 09:00 Temperature 97.6 F Pulse Rate 99 H 99 H 101 H Respiratory Rate 17 14 15 Blood Pressure 97/59 L 98/58 L 113/81 Pulse Oximetry 98 97 76 L 02/03/18 09:30 02/03/18 10:00 02/03/18 10:30 Temperature Pulse Rate 101 H 102 H 99 H Respiratory Rate 16 19 15 Blood Pressure 117/74 117/73 115/70 Pulse Oximetry 91 L 94 L 96 02/03/18 11:00 02/03/18 11:30 02/03/18 12:00 Temperature 98.3 F Pulse Rate 106 H 111 H 118 H Respiratory Rate 14 16 20 Blood Pressure 119/73 120/84 112/69 Pulse Oximetry 96 97 95 02/03/18 12:30 02/03/18 13:00 02/03/18 13:05 Temperature Pulse Rate 118 H 119 H Respiratory Rate 15 18 21 Blood Pressure 105/56 L 126/60 Pulse Oximetry 96 95 02/03/18 13:30 02/03/18 14:00 02/03/18 14:30 Temperature Pulse Rate 124 H 112 H 111 H Respiratory Rate 25 H 20 30 H Blood Pressure 128/79 114/67 111/64 Pulse Oximetry 97 96 96 02/03/18 15:00 02/03/18 15:30 02/03/18 15:35 Temperature Pulse Rate 116 H 120 H Respiratory Rate 15 16 15 Blood Pressure 113/70 Pulse Oximetry 96 96 96 02/03/18 16:00 02/03/18 16:30 02/03/18 17:00 Temperature 98.9 F Pulse Rate 120 H 125 H 121 H Respiratory Rate 16 18 20 Blood Pressure 106/60 119/65 114/70 Pulse Oximetry 96 96 97 02/03/18 17:30 02/03/18 18:00 02/03/18 19:00 Temperature Pulse Rate 126 H 129 H 126 H Respiratory Rate 15 24 25 H Blood Pressure 105/59 L 99/54 L 110/68 Pulse Oximetry 96 97 95 02/03/18 19:30 02/03/18 20:00 02/03/18 20:31 Temperature 99.9 F H Pulse Rate 124 H 154 H Respiratory Rate 14 22 Blood Pressure 103/61 138/87 Pulse Oximetry 99 98 97 02/03/18 21:00 02/03/18 21:30 02/03/18 21:38 Temperature Pulse Rate 133 H 129 H Respiratory Rate 21 20 15 Blood Pressure 88/52 L 105/59 L Pulse Oximetry 98 97 99 02/03/18 22:00 02/03/18 22:30 02/03/18 23:00 Temperature Pulse Rate 140 H 138 H 132 H Respiratory Rate 17 22 17 Blood Pressure 96/52 L 99/58 L 93/51 L Pulse Oximetry 96 97 91 L 02/03/18 23:30 02/03/18 23:39 02/04/18 00:00 Temperature 99.0 F Pulse Rate 126 H 99 H Respiratory Rate 19 17 18 Blood Pressure 94/49 L 79/48 L Pulse Oximetry 92 L 94 L 91 L 02/04/18 00:04 02/04/18 00:15 02/04/18 00:30 Temperature Pulse Rate 101 H 106 H 113 H Respiratory Rate 21 23 20 Blood Pressure 80/49 L 91/54 L 93/55 L Pulse Oximetry 90 L 92 L 92 L 02/04/18 00:45 02/04/18 01:00 02/04/18 01:15 Temperature Pulse Rate 111 H 109 H 114 H Respiratory Rate 24 22 21 Blood Pressure 90/52 L 89/51 L 88/53 L Pulse Oximetry 91 L 95 02/04/18 01:30 02/04/18 01:45 02/04/18 02:00 Temperature Pulse Rate 114 H 113 H 111 H Respiratory Rate 26 H 15 21 Blood Pressure 89/55 L 94/51 L 98/49 L Pulse Oximetry 95 96 96 02/04/18 02:15 02/04/18 02:30 02/04/18 02:45 Temperature Pulse Rate 117 H 115 H 114 H Respiratory Rate 19 17 17 Blood Pressure 97/55 L 100/57 L 97/52 L Pulse Oximetry 96 96 96 02/04/18 03:00 02/04/18 03:15 02/04/18 03:30 Temperature Pulse Rate 113 H 106 H 113 H Respiratory Rate 16 15 17 Blood Pressure 93/52 L 86/52 L 93/69 L Pulse Oximetry 96 95 95 02/04/18 03:31 02/04/18 03:45 02/04/18 04:00 Temperature 97.5 F L Pulse Rate 111 H 114 H 113 H Respiratory Rate 18 16 18 Blood Pressure 96/63 L 103/57 L Pulse Oximetry 94 L 96 02/04/18 04:15 02/04/18 04:30 02/04/18 04:45 Temperature Pulse Rate 107 H 119 H 114 H Respiratory Rate 14 24 20 Blood Pressure 87/49 L 115/59 L 102/55 L Pulse Oximetry 95 94 L 94 L 02/04/18 05:00 02/04/18 05:15 02/04/18 05:30 Temperature Pulse Rate 112 H 116 H 113 H Respiratory Rate 19 20 16 Blood Pressure 102/56 L 95/53 L 107/59 L Pulse Oximetry 94 L 94 L 94 L 02/04/18 05:45 02/04/18 06:00 02/04/18 06:15 Temperature Pulse Rate 109 H 108 H 109 H Respiratory Rate 25 H 18 22 Blood Pressure 105/55 L 88/53 L 87/52 L Pulse Oximetry 94 L 94 L 94 L 02/04/18 06:30 02/04/18 06:45 02/04/18 06:46 Temperature Pulse Rate 105 H 97 H 98 H Respiratory Rate 15 14 14 Blood Pressure 101/61 74/43 L 74/42 L Pulse Oximetry 94 L 90 L 89 L 02/04/18 06:47 02/04/18 06:58 02/04/18 07:00 Temperature Pulse Rate 99 H 100 H 98 H Respiratory Rate 14 14 14 Blood Pressure 81/44 L 87/54 L Pulse Oximetry 95 95 96 Intake & Output 02/03/18 02/04/18 02/04/18 18:59 06:59 18:59 Intake Total 2650 / 2650 1609 / 1609 Output Total 3750 / 3750 2594 / 2594 Balance -1100 / -1100 -985 / -985 Intake: IV 2300 / 2300 900 / 900 D5W/LR Inj 1,000 ML @ 125 mls/ 1000 / 1000 hr IV.CONT .Q8H DANTE Rx#: [id number] Diprivan 1000 mg/100 ml Inj 1, 100 / 100 100 / 100 000 mg In 100 ml @ 5 MCG/KG/MIN 1.95 mls/hr IV.CONT TITRATE PRN Rx#:[id number] Flexbumin 25% Inj 100 ML @ 60 100 / 100 100 / 100 mls/hr IV.SIG Q12H DANTE Rx#: [id number] Azithromycin Inj 500 MG In NS 250 / 250 Inj 250 ML @ 250 mls/hr IV.SIG Q24H DANTE Rx#:[id number] Maxipime Inj 2,000 MG In NS Inj 200 / 200 100 / 100 100 ML @ 200 mls/hr IV.SIG Q8H DANTE Rx#:[id number] KCl 40 mEq Premix Inj 40 meq In 200 / 200 100 ml @ 25 mls/hr IV.SIG Q2H PRN Rx#:[id number] Vancomycin Inj 1,000 MG In NS 500 / 500 250 / 250 Inj 250 ML @ 250 mls/hr IV.SIG Q12H DANTE Rx#:[id number] Flagyl 500 MG Inj 100 ML @ 100 200 / 200 100 / 100 mls/hr IV.SIG Q8H DANTE Rx#: [id number] Tube Feeding 170 / 170 529 / 529 Tube Irrigant 180 / 180 180 / 180 Output: Urine Amount (Catheter) 3550 / 3550 2500 / 2500 Indwelling Urethral Catheter 3550 / 3550 2500 / 2500 Chest Tube Drainage 200 / 200 94 / 94 Right Upper Anterior 0 / 0 14 / 14 Right Upper Mid-Axillary Chest 200 / 200 80 / 80 Other: # Bowel Movements 0 Result Diagrams: 02/04/18 04:00 02/04/18 04:00 Objective Remarks: GENERAL: Elderly critically ill-appearing female who is intubated. SKIN: Delayed cap refill. HEAD: Atraumatic. Normocephalic. EYES: Pupils equal and round. No scleral icterus. No injection or drainage. ENT: No nasal bleeding or discharge. Orotracheally intubated NECK: Trachea midline. No JVD. CARDIOVASCULAR: Irregularly irregular, A. fib on the monitor. No murmurs rubs or gallops. RESPIRATORY: Orotracheally intubated. On PRVC. Coarse rhonchorous breath sounds bilaterally, diminished right base. Bilateral chest tubes to the right with no air leak. Large bore chest tube had 280 ML output last 24 hours GASTROINTESTINAL: Abdomen soft, non-tender, nondistended. Bowel sounds hypoactive. MUSCULOSKELETAL: Extremities without clubbing, cyanosis. NEUROLOGICAL: Patient is intubated sedated. Moves all extremities. 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 - Other specified diseases of blood and blood-forming organs Status: Chronic (4) HCAP (healthcare-associated pneumonia) Code(s): J18.9 - Pneumonia, unspecified organism Status: Acute (5) Severe sepsis Code(s): A41.9 - Sepsis, unspecified organism; R65.20 - Severe sepsis without septic shock Status: Acute (6) Leukocytosis Code(s): D72.829 - Elevated white blood cell count, unspecified Status: Acute (7) Atrial fibrillation Code(s): I48.91 - Unspecified atrial fibrillation Status: Chronic (8) Essential (primary) hypertension Code(s): I10 - Essential (primary) hypertension Status: Chronic (9) HLD (hyperlipidemia) Code(s): E78.5 - Hyperlipidemia, unspecified Status: Chronic (10) Hypothyroidism Code(s): E03.9 - Hypothyroidism, unspecified Status: Chronic (11) Lactic acidemia Code(s): E87.2 - Acidosis Status: Acute (12) Pleural effusion Code(s): J90 - Pleural effusion, not elsewhere classified Status: Acute (13) High transaminase levels Code(s): R74.0 - Nonspecific elevation of levels of transaminase and lactic acid dehydrogenase [LDH] Status: Acute (14) Hyperammonemia Code(s): E72.20 - Disorder of urea cycle metabolism, unspecified Status: Acute - Assessment and Plan Plan: NEURO: Acute encephalopathy suspect secondary to sepsis. CT brain 02/02/18 demonstrates atrophy TSH is within normal limits. B12 normal Mild hyperammonemia lactulose 30 mL po . Follow-up ammonia normal Target RASS -1. Daily sedation vacation. Hold paroxetine 80 mg p.o. daily (may require linezolid if diagnosed with MRSA pneumonia) Hold tramadol 50 mg p.o. daily RESP: Acute respiratory failure Right pleural effusion Bilateral pneumonia Intubated in the emergency department 26 for airway protection. CXR today demonstrates bilateral consolidation. 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 s/p 1 L normal saline bolus. Off Levophed and fluids now Limited 2D echo- LVEF 30-35% with apical akinesis. Mild to moderate tricuspid regurgitation 02/03/2018 started on IV Lasix 40 mg every 12 with IV albumin. Urine output excellent 6 L in 24 hours Troponin only marginally elevated. Reportedly recent cardiac catheterization per Dr. Howie Ortiz at [facility], report not available but impression was demand ischemia and ?Takotsubo cardiomyopathy. Hold metoprolol succinate 25 mg p.o. daily, lisinopril 5 mg p.o. daily, HCTZ 25 mg p.o. jojo due to hypotension. Hold simvastatin 40 mg p.o. daily due to transaminase elevation. Resumed Eliquis yesterday Placed on Cardizem push and infusion for atrial fibrillation with RVR GI: Constipation Mild transaminase elevation Malnutrition F/u CMP. Per nursing report no bowel movement for several days. CT abdomen and pelvis has been ordered per ED negative for acute finding Continue lactulose, increase dose to 30 mL every 6 hours. Fleet Enema x1 Mag citrate 300 mL x1 if no bowel movement today Tube feeds with Jevity FEN/RENAL: Hypokalemia severe Currently creatinine is normal. Monitor intake and output. Monitor electrolytes. Replace electrolytes as indicated per ICU electrolyte replacement protocol. IV Lasix as above with potassium replacement. 6 L output in 24 hours ID: Severe sepsis HCAP vs aspiration pneumonia Leukocytosis Blood and sputum culture negative to date. Neg urine Legionella and pneumococcal antigen. Neg influenza screen. Pleural fluid studies show exudative fluid Reviewed records from outside hospital. Blood culture from 01/28 had 1 out of 4 blood cultures was positive for coag negative staph which was likely contaminant. Received Zosyn, azithromycin, vancomycin in the emergency department. Continue cefepime, Flagyl, azithromycin, vancomycin to cover for healthcare associated organisms as well as aspiration. Narrow antibiotics based on culture data. 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 Hypothyroidism TSH was normal on admission. Continue levothyroxine 88 mcg p.o. daily. PROPH: SCD for DVT prophylaxis. Resumed Eliquis 2.5 mg twice daily. Protonix 40 mg IV daily for stress ulcer prophylaxis ACCESS: Left IJ central venous line placed in ED 02/02/18 #3 She is critically ill and at high risk for further deterioration and . Updated her daughter, Aarti Obregon, after discussion with her father has decided on DNR status Critical care time 35 minutes exclusive of separately billable procedures. Code Status: DNR
[2018-02-04] MEDS ORDERED: Magnesium Citrate Liq 300 ML Bottle PO ONE (07:51)
[2018-02-04] MEDS ORDERED: Sod Phosphate/Sod Biphosphate (Adult) Enema 133 ML Bottle RECTAL ONE (08:00)
[2018-02-04] MEDS: Chlorhexidine 0.12% Oral Kit 15 ML UDC OROPHARYNG SCH ×2 (08:00→21:09)
[2018-02-04] MEDS: Beneprotein Powder Packet G-TUBE SCH ×3 (09:38→17:09)
[2018-02-04] MEDS: Senna/Docusate Sodium 8.6/50 MG Tablet PO SCH ×2 (09:39→21:10)
[2018-02-04] MEDS: Albumin Human 25% Inj 100 ML IV.SIG SCH ×2 (09:41→20:58)
[2018-02-04] MEDS: Pantoprazole Inj 40 MG Vial IV.PUSH SCH (09:54)
[2018-02-04] MEDS: Potassium Chloride 25 MEQ Effervescent Tablet NG/OG SCH ×2 (09:54→20:58)
--- NOTE | 2018-02-04 12:35 | P.DIET ---
Nutritional Evaluation Type of nutrition evaluation: initial Nutrition consult regarding: Tube Feeding Objective - Diagnosis Pneumonia, AMS - Objective % IBW: 114 Body Weight Used for Calculations: Actual (65kg(143-lb)) Energy Needs - Lower Range (kCal/kg): 25 Energy Needs - Upper Range (kCal/kg): 30 Lower Limit kCal/kg (kCals): 1,625 Upper Limit kCal/kg (kCals): 1,950 Lower Limit Protein Factor (Grams per Kg): 1.1 Upper Limit Protein Factor (Grams per Kg): 1.4 Lower Protein Needs (Protein): 72 Upper Protein Needs (Protein): 91 Dietitian Reviewed in Medical Record: Curent medications, Intake & Output, Labs , Medical history, Tube feeding Diet Order: NPO Objective Comments: PMH includes: AFib, Hypercholesterolemia, HTN, Hypothyroidism, Pneumonia Random Glucose 108 Meds include: Synthroid, Lasix, Flagil, Protonix, Paxil, Beneprotein TID, Propofol -BM Assessment Assessment: Pt is at nutritional risk r/t need for TF'ing. To best meet pt's assessed needs for TF'ing w/Jevity 1.5, Rec goal rate @ 50ml/hr x 22-hr(TF'ing held 1-hr before and 1hr after administering Synthroid), to offer 1650 kcal, 70g protein and 836ml free water. Rec to continue the Beneprotein TID to add an additional 18g protein and 75 kcal. Propofol provides some additional kcals(1.1 kcal/ml) when running. Labs reviewed. Pt w/ neg. BM and is receiving a bowel regimen. Recommendations: 1.To best meet pt's assessed needs for TF'ing w/Jevity 1.5, Rec goal rate @ 50ml /hr x 22-hr(TF'ing held 1-hr before and 1hr after administering Synthroid) 2. Rec to continue the Beneprotein TID 3. Propofol provides some additional kcals(1.1 kcal/ml)when running Dietitian to Monitor: Lab values, Tube feeding tolerance, Weight change, Medical course
[2018-02-04 13:36] LABS: ABG Base Excess 6.5 mmol/L (-2-2); ABG PCO2 52 mmHg (38-42); ABG PO2 134 mmHG (61-120)
[2018-02-04] MEDS ORDERED: Pharmacy Ordered Lab Info OTHER ONE (14:45)
[2018-02-04] MEDS ORDERED: Dextrose 5% in Water Inj 1,000 ML IV.SIG SCH (18:30)
[2018-02-04] MEDS ORDERED: Dextrose 50% in Water 50 ML Vial IV.PUSH PRN (18:31)
--- NOTE | 2018-02-04 19:20 | XR ---
EXAM DATE: 02/04/2018 7:14 PM EDT AGE/SEX: 87 years / Female INDICATIONS: Nasogastric tube placement. CLINICAL DATA: This is the patient's subsequent encounter. Patient reports that signs and symptoms h ave been present for 2 days and indicates a pain score of 0/10. MEDICAL/SURGICAL HISTORY: Non-responsive. Non-responsive. COMPARISON: . FINDINGS: NG tip is in the stomach. Nonspecific bowel gas pattern without obstruction or free air. Note is mad e of left lower lobe and right upper lobe airspace consolidation. Mild scoliosis. CONCLUSION: Nasogastric tube tip projects over stomach. No free air identified. Electronically signed by: Ramiro Epps MD 02/04/2018 7:19 PM EDT
[2018-02-05] MEDS: Oral Hygiene Kit OROPHARYNG SCH ×4 (00:31→17:40)
[2018-02-05] MEDS: Azithromycin Inj 500 MG in Sodium Chlor 0.9% Inj 250 ML IV.SIG SCH (02:34)
[2018-02-05] MEDS: Chlorhexidine Gluconate 2% 1 Pack (2 Cloths) TOPICAL SCH (03:50)
--- NOTE | 2018-02-05 04:08 | XR ---
EXAM DATE: 02/05/2018 3:50 AM EDT AGE/SEX: 87 years / Female INDICATIONS: Shortness of breath, possible pulmonary disease. CLINICAL DATA: This is the patient's subsequent encounter. Patient reports that signs and symptoms h ave been present for 3 days and indicates a pain score of 0/10. MEDICAL/SURGICAL HISTORY: Non-responsive. Non-responsive. COMPARISON: C, CHEST 1V SINGLE AP, 02/04/2018. . FINDINGS: Right upper lobe consolidation persists, not significantly changed. Mild bibasilar atelectasis and ti ny left pleural effusion are also stable. I don't see a pneumothorax. Heart size stable, within normal limits. Patient has been extubated. Nasogastric tube remains in place, courses into the stomach. 2 right ches t tubes remain in place. There is a left internal jugular central venous catheter again seen, tip in the superior vena cava. CONCLUSION: No significant change. Electronically signed by: Osbaldo Razo MD 02/05/2018 4:07 AM EDT
[2018-02-05 04:23] LABS: Hematocrit 29.2 % (35.0-46.0); Hemoglobin 9.9 gm/dL (11.6-15.3); Mean Corpuscular HGB Conc 34.1 % (32.0-36.0); Mean Corpuscular Hemoglobin 34.4 pg (27.0-34.0); Mean Corpuscular Volume 100.9 fL (80.0-100.0); Mean Platelet Volume 8.1 fL (7.0-11.0); Platelet Count 249 th/mm3 (150-450); Red Blood Count 2.89 mil/mm3 (4.00-5.30); White Blood Count 12.8 th/mm3 (4.0-11.0)
[2018-02-05 05:02] LABS: Alanine Aminotransferase 19 U/L (10-53); Albumin 2.8 g/dL (3.4-5.0); Alkaline Phosphatase 17 U/L (45-117); Anion Gap 4 meq/L (5-15); Aspartate Aminotransferase 11 U/L (15-37); Blood Urea Nitrogen 15 mg/dL (7-18); Chloride 98 meq/L (98-107); Glomerular Filtration Rate Greater Than 89 mL/min (>89); Glucose,Random 116 mg/dL (74-106); Magnesium 1.4 mg/dL (1.5-2.5); Potassium 3.1 meq/L (3.5-5.1); Sodium 142 meq/L (136-145); Total Protein 5.5 g/dL (6.4-8.2)
[2018-02-05] MEDS: Levothyroxine 88 MCG Tablet NG/OG SCH (05:52)
[2018-02-05] MEDS: Albumin Human 25% Inj 100 ML IV.SIG SCH (08:56)
[2018-02-05] MEDS: Potassium Chloride 25 MEQ Effervescent Tablet NG/OG SCH ×2 (08:59→21:50)
[2018-02-05] MEDS: Senna/Docusate Sodium 8.6/50 MG Tablet PO SCH ×2 (08:59→21:50)
[2018-02-05] MEDS: Pantoprazole Inj 40 MG Vial IV.PUSH SCH (08:59)
[2018-02-05] MEDS: Beneprotein Powder Packet G-TUBE SCH ×3 (09:00→20:43)
[2018-02-05] MEDS: Chlorhexidine 0.12% Oral Kit 15 ML UDC OROPHARYNG SCH ×2 (09:00→20:00)
--- NOTE | 2018-02-05 10:30 | P.PNCC ---
Subjective Subjective Remarks/Hospital Course: 87-year-old female with past medical history of hypertension, hyperlipidemia, atrial fibrillation recently prescribed anticoagulation with Eliquis, hypothyroidism who was brought to [facility] emergency department from [facility] via [facility] due to altered mental status. She had been admitted to [facility] earlier in the day with GCS 15 after recent hospitalization at [facility]. When vitals were checked at ~23: 30 she was noted to have GCS 9. She was moaning on arrival and was given Narcan 2 mg IV without improvement. She was intubated for airway protection. CXR demonstrates right upper/middle and lower lobe opacities and left basilar opacity. She was given Zosyn and Vancomycin in the ED. She reportedly was more alert following intubation but did have ABG so unknown if she was hypercapneic. She was admitted to [facility] 01/29-02/01 after presenting with generalized weakness and fever. She was found to have pneumonia and new onset atrial fibrillation with RVR. She was given Cardizem for rate control. She had mild troponin elevation (0.337). She underwent diagnostic cardiac catheterization by Dr. Ortiz, report is not available but impression was demand ischemia. 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 She was prescribed Eliquis at discharge. She was treated for CAP with ceftriaxone and azithromycin. She had a CT abd/pelvis on 01/28 that showed no acute abnormality. She had cholelithiasis and bilateral renal cysts. There were bilateral pleural effusions. SUBJ 02/03: Critically ill remains intubated sedated. Large bore chest tube was placed for large pleural effusion yesterday to the right side, for residual pneumothorax anterior pigtail chest tube also placed. X-ray today shows no pneumothorax but persistent consolidation bilateral lung. WBC count is slightly improved hemodynamically more stable but remains critically ill. Potassium and magnesium getting replaced 02/04: Patient remains intubated sedated. Clinically showing some signs of improvement though remaining critical. Urine output more than 6 L with diuresis. Chest x-ray shows persistent right upper lung and left lower lung consolidation. On sedation hold follows some commands. Chest tubes with 294 mL output, no air leak or pneumothorax on chest x-ray. Started on Cardizem infusion for A. fib with RVR 02/05 Patient was extubated yesterday on 3L oxygen, tachycardic. Afebrile. Objective Vital Signs / I&O: Vital Signs 02/04/18 11:00 02/04/18 11:09 02/04/18 12:00 Temperature 97.9 F Pulse Rate 118 H 117 H Respiratory Rate 19 16 15 Blood Pressure 101/57 L 103/58 L Pulse Oximetry 93 L 94 L 93 L 02/04/18 13:00 02/04/18 14:00 02/04/18 15:00 Temperature Pulse Rate 129 H 130 H 118 H Respiratory Rate 19 28 H 16 Blood Pressure 145/66 H 132/63 114/59 L Pulse Oximetry 94 L 96 95 02/04/18 16:00 02/04/18 16:04 02/04/18 17:00 Temperature 98.1 F Pulse Rate 121 H 126 H Respiratory Rate 17 17 26 H Blood Pressure 128/72 115/68 Pulse Oximetry 96 95 94 L 02/04/18 18:00 02/04/18 19:00 02/04/18 20:00 Temperature 98.8 F Pulse Rate 121 H 124 H Respiratory Rate 20 20 18 Blood Pressure 118/69 105/67 Pulse Oximetry 100 94 L 02/04/18 21:00 02/04/18 21:10 02/04/18 22:00 Temperature Pulse Rate 119 H 130 H Respiratory Rate 18 18 18 Blood Pressure Pulse Oximetry 100 02/05/18 00:00 02/05/18 01:36 02/05/18 02:38 Temperature 99 F Pulse Rate 125 H 117 H 119 H Respiratory Rate 20 22 Blood Pressure 112/55 L Pulse Oximetry 97 02/05/18 03:44 02/05/18 04:00 02/05/18 05:31 Temperature 98.9 F Pulse Rate 122 H 126 H 117 H Respiratory Rate 20 Blood Pressure 127/74 Pulse Oximetry 97 02/05/18 08:44 Temperature Pulse Rate 138 H Respiratory Rate 20 Blood Pressure Pulse Oximetry 96 Intake & Output 02/04/18 02/05/18 02/05/18 18:59 06:59 18:59 Intake Total 1528 / 1528 522 / 522 Output Total 3916 / 3916 1450 / 1450 Balance -2388 / -2388 -928 / -928 Weight 63 kg Intake: IV 700 / 700 300 / 300 Flexbumin 25% Inj 100 ML @ 60 100 / 100 100 / 100 mls/hr IV.SIG Q12H [facility] Rx#: [id number] Maxipime Inj 2,000 MG In NS Inj 200 / 200 100 / 100 100 ML @ 200 mls/hr IV.SIG Q8H [facility] Rx#:[id number] Levophed-Dextrose 4 mg/250 ml 200 / 200 Drip 4 mg In 250 ml @ 2 MCG/MIN 7.5 mls/hr IV.SIG TITRATE PRN Rx#:[id number] Flagyl 500 MG Inj 100 ML @ 100 200 / 200 100 / 100 mls/hr IV.SIG Q8H [facility] Rx#: [id number] Tube Feeding 108 / 108 162 / 162 Tube Irrigant 60 / 60 Other 720 / 720 Output: Urine 1400 / 1400 Urine Amount (Catheter) 3850 / 3850 Indwelling Urethral Catheter 3850 / 3850 Chest Tube Drainage 66 / 66 50 / 50 Right Upper Anterior 6 / 6 0 / 0 Right Upper Mid-Axillary Chest 60 / 60 50 / 50 Other: Date of Last Bowel Movement 02/04/18 02/04/18 # Incontinent Bowel Movements 1 Result Diagrams: 02/05/18 04:05 02/05/18 04:05 Other Results: Laboratory Results - last 12 hr 02/04/18 02/05/18 02/05/18 17:31 00:13 04:05 WBC 12.8 H RBC 2.89 L Hgb 9.9 L Hct 29.2 L MCV 100.9 H MCH 34.4 H MCHC 34.1 RDW 15.0 Plt Count 249 MPV 8.1 Sodium Potassium Chloride Carbon Dioxide Anion Gap BUN Creatinine Estimated GFR POC Glucose 64 L 127 H Random Glucose Calcium Magnesium Total Bilirubin AST ALT Alkaline Phosphatase Total Protein Albumin 02/05/18 02/05/18 04:05 05:18 WBC RBC Hgb Hct MCV MCH MCHC RDW Plt Count MPV Sodium 142 Potassium 3.1 L Chloride 98 Carbon Dioxide 40.0 H Anion Gap 4 L BUN 15 Creatinine 0.57 Estimated GFR Greater than 89 POC Glucose 113 H Random Glucose 116 H Calcium 8.0 L Magnesium 1.4 L Total Bilirubin 0.7 AST 11 L ALT 19 Alkaline Phosphatase 17 L Total Protein 5.5 L D Albumin 2.8 L D Imaging: Abdomen/Pelvis CT 02/02/18 00:00 CONCLUSION: 1. No dilated loops of small or large bowel and no evidence of ascites. 2. Large right and moderate size left pleural effusion. 3. Probable layering sludge in the gallbladder. Chest CT 02/02/18 00:00 CONCLUSION: 1. Bilateral pleural effusions, large on the right and moderate on the left. 2. Multi segmental consolidation in the right lung and scattered areas of subsegmental consolidation in the left lung. Head CT 02/02/18 00:29 CONCLUSION: 1. No acute findings in the brain. 2. Age-appropriate atrophy. . Cervical Spine CT 02/02/18 00:30 CONCLUSION: 1. No evidence of fracture or compression deformity. 2. Moderate severity degenerative changes throughout the cervical spine similar to recent MRI. 3. Right pleural effusion and areas of consolidation in the right upper lung. Abdomen X-Ray 02/04/18 00:00 CONCLUSION: Nasogastric tube tip projects over stomach. No free air identified. Chest X-Ray 02/05/18 06:00 CONCLUSION: No significant change. Objective Remarks: GENERAL: Elderly critically ill-appearing female lying in be din NAD. SKIN: Warm and dry. HEAD: Normocephalic. EYES: No scleral icterus. No injection or drainage. NECK: Supple, trachea midline. No JVD or lymphadenopathy. CARDIOVASCULAR: Tachycardic without murmurs, gallops, or rubs. RESPIRATORY: Breath sounds equal bilaterally. Coarse BS with few scattered wheezing. Bilateral chest tubes to the right GASTROINTESTINAL: Abdomen soft, non-tender, nondistended. MUSCULOSKELETAL: No cyanosis, or edema. Neuro: awake and alert. 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 - Other specified diseases of blood and blood-forming organs Status: Chronic (4) HCAP (healthcare-associated pneumonia) Code(s): J18.9 - Pneumonia, unspecified organism Status: Acute (5) Severe sepsis Code(s): A41.9 - Sepsis, unspecified organism; R65.20 - Severe sepsis without septic shock Status: Acute (6) Leukocytosis Code(s): D72.829 - Elevated white blood cell count, unspecified Status: Acute (7) Atrial fibrillation Code(s): I48.91 - Unspecified atrial fibrillation Status: Chronic (8) Essential (primary) hypertension Code(s): I10 - Essential (primary) hypertension Status: Chronic (9) HLD (hyperlipidemia) Code(s): E78.5 - Hyperlipidemia, unspecified Status: Chronic (10) Hypothyroidism Code(s): E03.9 - Hypothyroidism, unspecified Status: Chronic (11) Lactic acidemia Code(s): E87.2 - Acidosis Status: Acute (12) Pleural effusion Code(s): J90 - Pleural effusion, not elsewhere classified Status: Acute (13) High transaminase levels Code(s): R74.0 - Nonspecific elevation of levels of transaminase and lactic acid dehydrogenase [LDH] Status: Acute (14) Hyperammonemia Code(s): E72.20 - Disorder of urea cycle metabolism, unspecified Status: Acute - Assessment and Plan Plan: NEURO: Acute encephalopathy suspect secondary to sepsis. CT brain 02/02/18 demonstrates atrophy TSH is within normal limits. B12 normal Hold tramadol 50 mg p.o. daily RESP: Acute respiratory failure Right pleural effusion Bilateral pneumonia Extubated 02/04 Continue with oxygen keep sats >92% Bronchodilators 20 Azeri chest tube placed 02/02/2018 for large exudative pleural effusion, Anterior 10 Azeri chest tube placed subsequently on 02/02/2018 for residual pneumothorax Monitor CT drainage CXR today: Right upper lobe consolidation persists, not significantly changed. Mild bibasilar atelectasis Place on Solumederol 40mg IV Q8 CV: Cardiomyopathy with EF 30-35% Congestive heart failure Atrial fibrillation with RVR History of hypertension Hyperlipidemia Atrial fibrillation on chronic anticoagulation with Eliquis Monitor HR and BP keep MAP>65mmHg Limited 2D echo- LVEF 30-35% with apical akinesis. Mild to moderate tricuspid regurgitation 02/03/2018 started on IV Lasix 40 mg every 12 with IV albumin. Urine output excellent 6 L in 24 hours Troponin only marginally elevated. Reportedly recent cardiac catheterization per Dr. Howie Ortiz at [facility], report not available but impression was demand ischemia and ?Takotsubo cardiomyopathy. Hold simvastatin 40 mg p.o. daily due to transaminase elevation. Place on Coreg 3.125mg BID, continue Eliquis GI: Constipation Mild transaminase elevation Malnutrition Speech eal, diet per speech CT abdomen and pelvis negative for acute finding FEN/RENAL: Hypokalemia Monitor renal function, I/O's, electrolytes replacement per protocol. Decrease Lasix 40mg IV daily ID: Severe sepsis HCAP vs aspiration pneumonia Leukocytosis Blood and sputum culture negative to date. Neg urine Legionella and pneumococcal antigen. Neg influenza screen. Pleural fluid studies show exudative fluid Reviewed records from outside hospital. Blood culture from 01/28 had 1 out of 4 blood cultures was positive for coag negative staph which was likely contaminant. Received Zosyn, azithromycin, vancomycin in the emergency department. Continue cefepime, Flagyl, azithromycin, Monitor for signs of infections ( Fever , WBC) Narrow antibiotics based on culture data. HEME: Erythrocyte macrocytosis On chronic anticoagulation with Eliquis Monitor CBC Resumed Eliquis 2.5 mg po bid ENDO: Euglycemic on arrival. Hypothyroidism TSH was normal on admission. Continue levothyroxine 88 mcg p.o. daily. PROPH: SCD for DVT prophylaxis. Eliquis 2.5 mg twice daily. Protonix 40 mg IV daily for stress ulcer prophylaxis ACCESS: Left IJ central venous line placed in ED 02/02/18 Addendum: Spoke to patient's daughter updated her on her condition and she is requesting hospice eval. Patient's daughter confirmed DNR status (No code DNR) Level 3
[2018-02-05] MEDS ORDERED: Metoprolol Inj 5 MG/5 ML Vial IV.PUSH ONE ×2 (10:50→14:15)
[2018-02-05] MEDS ORDERED: Dextrose 50% in Water 50 ML Vial IV.PUSH PRN (12:41)
[2018-02-05] MEDS: Potassium Chlor 40 mEq Premix 40 MEQ/100 ML PIGGYBACK IV.SIG PRN ×2 (13:22→17:39)
[2018-02-05] MEDS ORDERED: MethylPREDNISolone Sod Succinate Inj 40 MG/ML Vial IV.PUSH SCH (14:00)
--- NOTE | 2018-02-05 14:44 | ECG ---
Date Performed: 02/02/2018 Time Performed: 00:09:40 PTAGE: 87 years EKG: ATRIAL FIBRILLATION WITH RAPID VENTRICULAR RESPONSE BORDERLINE RIGHT AXIS DEVIATION MODERAT E T-WAVE ABNORMALITY, CONSIDER LATERAL ISCHEMIA ABNORMAL ECG NO PREVIOUS TRACING DOCTOR: Ish Garcia Interpretating Date/Time 02/05/2018 14:41:41
[2018-02-05 17:32] VITALS: O2SAT 100
[2018-02-05] MEDS: Insulin NovoLOG Aspart Correctional Sugar Inj SQ SCH ×2 (17:50→19:59)
--- NOTE | 2018-02-05 18:05 | ECG ---
Date Performed: 02/02/2018 Time Performed: 03:21:45 PTAGE: 87 years EKG: ATRIAL FIBRILLATION BORDERLINE RIGHT AXIS DEVIATION ST DEVIATION AND MODERATE T-WAVE ABNORM ALITY, CONSIDER LATERAL ISCHEMIA ABNORMAL ECG PREVIOUS TRACING 02/02/18 @ 00.09 Since the previous tracing, no significant change note d DOCTOR: Ish Garcia Interpretating Date/Time 02/05/2018 18:04:27
--- NOTE | 2018-02-05 18:42 | P.CONPAL ---
Consult Service: Palliative Care Requesting Physician: Aisha Mcgowan Reason for Consult: a. To assist with evaluation and management of symptoms including: Dyspnea, weakness, dysphasia b. To assist medical decision maker(s) with: better understanding of current medical conditions; weighing benefits/burdens of medical treatment options; making medical treatment decisions. Primary Care Provider: Cam Murillo DO History of Present Illness History of Present Illness: This is a very pleasant, frail 87-year-old female with a history of atrial fibrillation on Eliquis, hyperlipidemia, hypertension, hypothyroidism and recurrent pneumonia who presents with altered mental status. She had been in [facility] and had been discharged to [facility] on 02/02. 4 hours later she was found by nursing staff with decreased responsiveness and EMS reports a GCS of 9 on arrival. Blood glucose was greater than 100 and she was found to be tachycardic but otherwise stable. Once admitted she was emergently intubated for airway protection. Chest x-ray showed pneumonia. Diagnostic data on admission * WBC 15.9, hemoglobin 12.5, hematocrit 36.6, platelets 338, sodium 137, potassium 4.1, BUN 15, creatinine 0.56, normal transaminase, TSH 1.450 troponin 0 0.03, TCK 76, lactic acid 2.8, ammonia 37, urinalysis showed rare bacteria negative leukocyte esterase culture indicated, urine toxicology was negative for all but benzodiazepines. * Chest x-ray shows consolidative infiltrates in the right upper and bilateral lower lungs with ET tube in good position. * Head CT shows no CT findings in the brain with age-appropriate atrophy. * Cervical spine CT shows no evidence of fracture or compression deformity. Moderate severity degenerative changes throughout the cervical spine similar to recent MRI. Right pleural effusion and areas of consolidation in the right upper lung * 2D echocardiogram shows a severely reduced LVEF of 30-35% with apical akinesis , mild to moderately dilated left atrium mild to moderate tricuspid regurgitation trivial pulmonary regurgitation small pericardial effusion She was admitted to the senior engineering team leader service and required right large bore chest tube placement for large pleural effusion and subsequently required anterior pigtail chest tube placement for residual pneumothorax. She remained intubated on antibiotics and was subsequently extubated 01/27 8-3 L nasal cannula. At this evaluation she is on a 100% breather and clearly declining. At this evaluation she remains dyspneic, worse above her chronic baseline, constant, worsening since extubation. Her heart rate is in the 130s, she appears weak and frail. She dozes off during conversation. She is tachypneic with a respiratory rate of 28 and appears to be declining from a respiratory standpoint. She was evaluated by speech therapy and demonstrated moderate to severe oropharyngeal dysphasia with risk of aspiration with thin liquids and nectar thick liquids. Per the daughter, this is been progressively worsening with her continued decline and weakness. She was placed on a honey consistency thickened liquid diet with pured solids. She is profoundly weak and can only maintain focus on a conversation for a few minutes before closing her eyes and leaning back on the pillow to regain her strength. Her weakness is chronic, worsening, moderately severe, exacerbated by prolonged hospitalization. Past medical history Hypertension Hyperlipidemia Atrial fibrillation on Eliquis Hypothyroidism Pneumonia Past surgical history Left heart catheterization by Dr. 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 . Function/Cognitive Trajectory: Her daughter states that she has been weaker, more short of breath and having more frequent visits to the emergency room. Those records are not available at this time as they took place in [facility] . Review of Systems Patient is minimally verbal, profoundly weak and unable to provide their own ROS. A 12 part ROS taken as best as possible from medical record and available family. Constitutional: Reports weakness Ears, Nose, Mouth, and Throat: Reports difficulty swallowing Respiratory: Reports shortness of breath PMFSH - History History Provided By: Collar Baster / EMT - Medical History Medical History: Medical History (Last Reviewed 02/05/18 @ 11:32 by Patricia Vallejo) A-fib Hypercholesterolemia Hypertension Hypothyroidism Pneumonia Surgical history unknown - Family History Family History: Family History (Last Updated 02/02/18 @ 03:08 by Brooke Carrera MD) Other Family history unobtainable - Tobacco History Smoking Status: Unknown if ever smoked - Alcohol History How Often Do You Have a Drink Containing Alcohol: Unable to Obtain - Substance Use History Substance History: Unable to Obtain - Immunization History Tetanus Immunization: Unable to Assess Medications and Allergies Active Medications: Active Medications Acetaminophen (Tylenol) 650 mg PO Q6H PRN PRN Reason: PAIN 1-10 AND/OR FEVER >101F Al Hydroxide/Mg Hydroxide (Milk Of Magnesia Liq) 30 ml PO Q12H PRN PRN Reason: Mild Constipation Albuterol (Albuterol Neb (Prn)) 2.5 mg NEB Q2HR NEB PRN PRN Reason: SHORTNESS OF BREATH/WHEEZING Albuterol (Duoneb Neb (Hannah)) 1 ampul NEB Q4HR NEB [facility] Last Admin: 02/05/18 15:03 Dose: 1 ampul Apixaban (Eliquis) 2.5 mg PO BID [facility] Last Admin: 02/05/18 08:59 Dose: 2.5 mg Bisacodyl (Dulcolax Supp) 10 mg RECTAL DAILY PRN PRN Reason: SEVERE CONSITIPATION Carvedilol (Coreg) 3.125 mg PO BID [facility] Last Admin: 02/05/18 10:53 Dose: 3.125 mg Chlorhexidine Gluconate (Chlorhexidine 2% Cloth) 3 pack TOPICAL DAILY@0400 [facility] Stop: 02/07/18 03:59 Last Admin: 02/05/18 03:50 Dose: 3 pack Chlorhexidine Gluconate (Chlorhexidine 2% Cloth) 3 pack TOPICAL DAILY@0400 PRN PRN Reason: Extra cloth needed Stop: 02/07/18 03:59 Chlorhexidine Gluconate (Peridex 0.12% Oral Kit) 15 ml OROPHARYNG BID@0800, 2000 [facility] Last Admin: 02/05/18 09:00 Dose: 15 ml Dextrose (D50w Vial) 50 ml IV.PUSH UNSCH PRN PRN Reason: PER HYPOGLYCEMIA PROTOCOL Furosemide (Lasix Inj) 40 mg IV.PUSH DAILY [facility] Glucagon (Glucagon Inj) 1 mg OTHER UNSCH PRN PRN Reason: for Hypoglycemia Protocol Sodium Chloride (Ns Inj) 1,000 mls @ 0 mls/hr IV.SIG BOLUS [facility] Azithromycin 500 mg/ Sodium (Chloride) 250 mls @ 250 mls/hr IV.SIG Q24H [facility] Last Admin: 02/05/18 02:34 Dose: 250 mls/hr Cefepime HCl 2,000 mg/ Sodium (Chloride) 100 mls @ 200 mls/hr IV.SIG Q8H [facility] Last Admin: 02/05/18 17:39 Dose: 200 mls/hr Metronidazole/Sodium Chloride (Flagyl 500 Mg Inj) 100 mls @ 100 mls/hr IV.SIG Q8H [facility] Last Admin: 02/05/18 17:40 Dose: 100 mls/hr Magnesium Sulfate 4 gm/ Sodium (Chloride) 100 mls @ 50 mls/hr IV.SIG UNSCH PRN PRN Reason: For Magnesium 0.9 - 1.1 mg/dL Magnesium Sulfate 2 gm/ Sodium (Chloride) 100 mls @ 50 mls/hr IV.SIG UNSCH PRN PRN Reason: For Magnesium 1.2 - 1.6 mg/dL Potassium Chloride (Kcl 40 Meq Premix Inj) 40 meq in 100 mls @ 25 mls/hr IV.SIG Q2H PRN PRN Reason: For Potassium 2.8 - 3.2 mEq/L Last Admin: 02/05/18 17:39 Dose: 25 mls/hr Potassium Chloride (Kcl 20 Meq Premix Inj) 20 meq in 100 mls @ 50 mls/hr IV.SIG Q2H PRN PRN Reason: For Potassium 3.3 - 3.5 mEq/L Potassium Chloride (Kcl 40 Meq Premix Inj) 40 meq in 100 mls @ 25 mls/hr IV.SIG UNSCH PRN PRN Reason: For Potassium 3.3 - 3.5 mEq/L Potassium Phosphate 30 mmol/ (Sodium Chloride) 260 mls @ 42 mls/hr IV.SIG UNSCH PRN PRN Reason: SEE LABEL COMMENTS Sodium Phosphate 30 mmol/ (Sodium Chloride) 260 mls @ 42 mls/hr IV.SIG UNSCH PRN PRN Reason: For Phosphorus < 2.5 mg/dL Potassium Chloride (Kcl 20 Meq Premix Inj) 20 meq in 100 mls @ 50 mls/hr IV.SIG Q2H PRN PRN Reason: For Potassium 2.8 - 3.2 mEq/L Insulin Aspart (Novolog Insulin Correctional Sugar Inj) 0 unit SQ Q4HR HANNAH; Protocol Last Admin: 02/05/18 17:50 Dose: 1 unit Lactulose (Lactulose Liq) 30 ml PO Q6H [facility] Last Admin: 02/05/18 13:06 Dose: 30 ml Levothyroxine Sodium (Synthroid) 88 mcg NG/OG DAILY@0600 [facility] Last Admin: 02/05/18 05:52 Dose: 88 mcg Magnesium Oxide (Mag-Ox) 800 mg PO UNSCH PRN PRN Reason: For Magnesium 1.2 - 1.6 mg/dL Last Admin: 02/03/18 08:44 Dose: 800 mg Methylprednisolone Sodium Succinate (Solumedrol Inj) 40 mg IV.PUSH Q8HR [facility] Last Admin: 02/05/18 14:19 Dose: 40 mg Miscellaneous Medication () 1 each OROPHARYNG 0000,0400,1200,1600 [facility] Last Admin: 02/05/18 17:40 Dose: 1 each Ondansetron HCl (Zofran Inj) 4 mg IV.PUSH Q6H PRN PRN Reason: NAUSEA OR VOMITING Pantoprazole Sodium (Protonix Inj) 40 mg IV.PUSH DAILY [facility] Last Admin: 02/05/18 08:59 Dose: 40 mg Paroxetine HCl (Paxil) 40 mg PO DAILY [facility] Last Admin: 02/05/18 08:59 Dose: 40 mg Potassium Bicarb/Potassium Chloride (K-Lyte Cl Eff) 50 meq PO UNSCH PRN PRN Reason: For Potassium 3.3 - 3.5 mEq/L Last Admin: 02/03/18 19:07 Dose: 50 meq Potassium Bicarb/Potassium Chloride (K-Lyte Cl Eff) 25 meq NG/OG BID [facility] Last Admin: 02/05/18 08:59 Dose: 25 meq Potassium Phosphate (K-Phos Original) 2,000 mg PO Q4H PRN PRN Reason: Phosphorus Less Than 2.5 mg/dL Potassium Phosphate (K-Phos Original) 2,000 mg PO UNSCH PRN PRN Reason: SEE LABEL COMMENTS Senna/Docusate Sodium (Emelyn-Colace) 1 tab PO BID [facility] Last Admin: 02/05/18 08:59 Dose: 1 tab Sennosides (Senokot) 17.2 mg PO Q12H PRN PRN Reason: Moderate Constipation Sodium Chloride (Ns Flush) 2 ml IV.FLUSH BID [facility] Last Admin: 02/05/18 08:59 Dose: 2 ml Sodium Chloride (Ns Flush) 2 ml IV.FLUSH PRN PRN PRN Reason: FLUSH AFTER USING IV ACCESS Whey (Beneprotein Powder) 1 packet G-TUBE TID [facility] Last Admin: 02/05/18 13:06 Dose: 1 packet Allergies Allergy/AdvReac Type Severity Reaction Status Date / Time No Known Allergies Allergy Verified 02/02/18 00:29 Home Medications Medication Instructions Recorded Confirmed Type Saccharomyces boulardii 250 mg PO BID 02/02/18 02/02/18 History apixaban 2.5 mg PO BID 02/02/18 02/02/18 History azithromycin 500 mg PO DAILY 02/02/18 02/02/18 History doxycycline hyclate 100 mg PO BID 02/02/18 02/02/18 History hydrochlorothiazide 25 mg PO DAILY 02/02/18 02/02/18 History levothyroxine 88 mcg PO DAILY 02/02/18 02/02/18 History lisinopril 5 mg PO DAILY 02/02/18 02/02/18 History loratadine 10 mg PO DAILY 02/02/18 02/02/18 History metoprolol succinate 25 mg PO DAILY 02/02/18 02/02/18 History naproxen 375 mg PO BID 02/02/18 02/02/18 History paroxetine HCl 40 mg PO DAILY 02/02/18 02/02/18 History simvastatin 40 mg PO QPM 02/02/18 02/02/18 History tramadol 50 mg PO BID PRN 02/02/18 02/02/18 History Advance Directives Living Will: Unknown Healthcare Surrogate: No (Daughter states paperwork at [facility]. Fax number supplied.) Health Care Surrogate Name and Number: Aarti Obregon Physical Exam Vital Signs: Vital Signs - 24 hr 02/04/18 19:00 02/04/18 20:00 02/04/18 21:00 Temperature 98.8 F Pulse Rate 124 H Respiratory Rate 20 18 18 Blood Pressure 105/67 Pulse Oximetry 94 L 02/04/18 21:10 02/04/18 22:00 02/05/18 00:00 Temperature 99 F Pulse Rate 119 H 130 H 125 H Respiratory Rate 18 18 20 Blood Pressure 112/55 L Pulse Oximetry 100 97 02/05/18 01:36 02/05/18 02:38 02/05/18 03:44 Temperature Pulse Rate 117 H 119 H 122 H Respiratory Rate 22 Blood Pressure Pulse Oximetry 02/05/18 04:00 02/05/18 05:31 02/05/18 08:00 Temperature 98.9 F 98.9 F Pulse Rate 126 H 117 H 129 H Respiratory Rate 20 32 H Blood Pressure 127/74 164/82 H Pulse Oximetry 97 92 L 02/05/18 08:44 02/05/18 10:00 02/05/18 12:00 Temperature 98.4 F Pulse Rate 138 H 134 H 110 H Respiratory Rate 20 26 H Blood Pressure 133/83 Pulse Oximetry 96 134 H 92 L 02/05/18 14:00 02/05/18 15:05 02/05/18 16:00 Temperature 98.8 F Pulse Rate 79 46 L 131 H Respiratory Rate 16 28 H Blood Pressure 145/76 H Pulse Oximetry 100 I&O: Intake & Output 02/03/18 02/04/18 02/05/18 02/06/18 06:59 06:59 06:59 06:59 Intake Total 4700 / 4700 4259 / 4259 2049 / 2049 300 / 300 Output Total 2099 / 2099 6344 / 6344 5366 / 5366 Balance 2600 / 2600 -5 / -2084 -3316 / -3316 300 / 300 Weight 138 lb 14.259 oz Physical Exam: CONSTITUTIONAL/GENERAL: This is a frail, thin, elderly female sitting up in bed on a 100% nonrebreather in no acute distress. TUBES/LINES/DRAINS: L IJ CVL SKIN: No jaundice, rashes, or lesions. Ecchymoses on upper extremities. No wounds seen anteriorly. Skin temperature appropriate. Not diaphoretic. HEAD: Atraumatic. Normocephalic. EYES: Pupils equal and round and reactive. Extraocular motions intact. No scleral icterus. No injection or drainage. Fundi not examined. ENT: Hearing grossly normal. Nose without bleeding or purulent drainage, NG tube intact. Throat without visible erythema, exudates, masses, or lesions. NECK: Trachea midline. Supple, nontender. No palpable thyroid enlargement or nodularity. CARDIOVASCULAR: Irregular rhythm, tachycardic rate, no rub murmur or gallop auscultated. No edema, no JVD RESPIRATORY/CHEST: Lung sounds diminished bilaterally, faint bibasilar crackles , no wheezes or rhonchi. Tachypneic, no accessory muscle use. GASTROINTESTINAL: Abdomen soft, non-tender, nondistended. No hepato-splenomegaly , or palpable masses. No guarding. Bowel sounds present. GENITOURINARY: Without palpable bladder distension. Cruz catheter in place. MUSCULOSKELETAL: Extremities without clubbing, cyanosis, or edema. No joint tenderness or effusion noted. No calf tenderness. No mottling or clubbing. LYMPHATICS: No palpable cervical or supraclavicular adenopathy. NEUROLOGICAL: Awake, lethargic, arouses to stimuli, pleasant and appropriate, profoundly weak. PSYCHIATRIC: No obvious anxiety/depression. no apparent hallucinations or other psychotic thought process. . Diagnostic Tests Laboratory: Laboratory Results - last 72 hr 02/02/18 02/03/18 02/03/18 03:35 03:44 03:44 WBC 13.7 H RBC 3.16 L Hgb 10.8 L Hct 30.9 L MCV 97.9 MCH 34.3 H MCHC 35.1 RDW 15.0 Plt Count 257 MPV 8.3 Neut % (Auto) 82.4 H Lymph % (Auto) 11.2 Rincon % (Auto) 5.3 Eos % (Auto) 1.0 Baso % (Auto) 0.1 Neut # (Auto) 11.3 H Lymph # (Auto) 1.5 Rincon # (Auto) 0.7 Eos # (Auto) 0.1 Baso # (Auto) 0.0 WBC Differential . Differential Comment Auto diff final PT 11.2 INR 1.1 APTT 30.8 H Puncture Site Patient Temperature O2 Saturation ABG pH ABG pCO2 ABG pO2 ABG HCO3 ABG O2 Content ABG Base Excess ABG Methemoglobin Lico Test Hemoglobin Carboxyhemoglobin O2 Delivery Device Vent Setting Inspired O2 Critical Value Sodium 142 Potassium 2.8 L* D Chloride 104 Carbon Dioxide 31.1 Anion Gap 7 BUN 12 Creatinine 0.49 L Estimated GFR Greater than 89 POC Glucose Random Glucose 134 H Calcium 7.5 L D Phosphorus 2.7 Magnesium 1.4 L Total Bilirubin 0.4 AST 19 ALT 28 Alkaline Phosphatase 22 L Ammonia Total Protein 4.1 L D Albumin 1.4 L D Vancomycin Trough 02/03/18 02/03/18 02/03/18 03:44 06:33 12:19 WBC RBC Hgb Hct MCV MCH MCHC RDW Plt Count MPV Neut % (Auto) Lymph % (Auto) Rincon % (Auto) Eos % (Auto) Baso % (Auto) Neut # (Auto) Lymph # (Auto) Rincon # (Auto) Eos # (Auto) Baso # (Auto) WBC Differential Differential Comment PT INR APTT Puncture Site Patient Temperature O2 Saturation ABG pH ABG pCO2 ABG pO2 ABG HCO3 ABG O2 Content ABG Base Excess ABG Methemoglobin Lico Test Hemoglobin Carboxyhemoglobin O2 Delivery Device Vent Setting Inspired O2 Critical Value Sodium Potassium Chloride Carbon Dioxide Anion Gap BUN Creatinine Estimated GFR POC Glucose 115 H 87 Random Glucose Calcium Phosphorus Magnesium Total Bilirubin AST ALT Alkaline Phosphatase Ammonia 16 Total Protein Albumin Vancomycin Trough 02/03/18 02/03/18 02/03/18 14:32 17:00 18:18 WBC RBC Hgb Hct MCV MCH MCHC RDW Plt Count MPV Neut % (Auto) Lymph % (Auto) Rincon % (Auto) Eos % (Auto) Baso % (Auto) Neut # (Auto) Lymph # (Auto) Rincon # (Auto) Eos # (Auto) Baso # (Auto) WBC Differential Differential Comment PT INR APTT Puncture Site Patient Temperature O2 Saturation ABG pH ABG pCO2 ABG pO2 ABG HCO3 ABG O2 Content ABG Base Excess ABG Methemoglobin Lico Test Hemoglobin Carboxyhemoglobin O2 Delivery Device Vent Setting Inspired O2 Critical Value Sodium Potassium 3.3 L Chloride Carbon Dioxide Anion Gap BUN Creatinine Estimated GFR POC Glucose 61 L Random Glucose Calcium Phosphorus Magnesium Total Bilirubin AST ALT Alkaline Phosphatase Ammonia Total Protein Albumin Vancomycin Trough 17.4 H 02/03/18 02/03/18 02/03/18 18:37 23:30 23:30 WBC RBC Hgb Hct MCV MCH MCHC RDW Plt Count MPV Neut % (Auto) Lymph % (Auto) Rincon % (Auto) Eos % (Auto) Baso % (Auto) Neut # (Auto) Lymph # (Auto) Rincon # (Auto) Eos # (Auto) Baso # (Auto) WBC Differential Differential Comment PT INR APTT Puncture Site Patient Temperature O2 Saturation ABG pH ABG pCO2 ABG pO2 ABG HCO3 ABG O2 Content ABG Base Excess ABG Methemoglobin Lico Test Hemoglobin Carboxyhemoglobin O2 Delivery Device Vent Setting Inspired O2 Critical Value Sodium Potassium 4.1 D Chloride Carbon Dioxide Anion Gap BUN Creatinine Estimated GFR POC Glucose 91 125 H Random Glucose Calcium Phosphorus Magnesium Total Bilirubin AST ALT Alkaline Phosphatase Ammonia Total Protein Albumin Vancomycin Trough 02/04/18 02/04/18 02/04/18 04:00 04:00 06:03 WBC 13.7 H RBC 2.67 L Hgb 9.1 L Hct 26.8 L MCV 100.5 H MCH 34.2 H MCHC 34.1 RDW 14.9 Plt Count 232 MPV 8.3 Neut % (Auto) Lymph % (Auto) Rincon % (Auto) Eos % (Auto) Baso % (Auto) Neut # (Auto) Lymph # (Auto) Rincon # (Auto) Eos # (Auto) Baso # (Auto) WBC Differential Differential Comment PT INR APTT Puncture Site Patient Temperature O2 Saturation ABG pH ABG pCO2 ABG pO2 ABG HCO3 ABG O2 Content ABG Base Excess ABG Methemoglobin Lico Test Hemoglobin Carboxyhemoglobin O2 Delivery Device Vent Setting Inspired O2 Critical Value Sodium 144 Potassium 3.5 Chloride 104 Carbon Dioxide 35.2 H Anion Gap 5 BUN 15 Creatinine 0.62 Estimated GFR Greater than 89 POC Glucose 73 Random Glucose 108 H Calcium 7.7 L Phosphorus Magnesium 1.6 Total Bilirubin 0.5 AST 14 L ALT 19 Alkaline Phosphatase 21 L Ammonia Total Protein 4.7 L D Albumin 2.1 L D Vancomycin Trough 02/04/18 02/04/18 02/04/18 11:42 11:43 12:52 WBC RBC Hgb Hct MCV MCH MCHC RDW Plt Count MPV Neut % (Auto) Lymph % (Auto) Rincon % (Auto) Eos % (Auto) Baso % (Auto) Neut # (Auto) Lymph # (Auto) Rincon # (Auto) Eos # (Auto) Baso # (Auto) WBC Differential Differential Comment PT INR APTT Puncture Site Patient Temperature O2 Saturation ABG pH ABG pCO2 ABG pO2 ABG HCO3 ABG O2 Content ABG Base Excess ABG Methemoglobin Lico Test Hemoglobin Carboxyhemoglobin O2 Delivery Device Vent Setting Inspired O2 Critical Value Sodium Potassium Chloride Carbon Dioxide Anion Gap BUN Creatinine Estimated GFR POC Glucose 63 L 66 L 72 Random Glucose Calcium Phosphorus Magnesium Total Bilirubin AST ALT Alkaline Phosphatase Ammonia Total Protein Albumin Vancomycin Trough 02/04/18 02/04/18 02/04/18 13:16 13:29 17:31 WBC RBC Hgb Hct MCV MCH MCHC RDW Plt Count MPV Neut % (Auto) Lymph % (Auto) Rincon % (Auto) Eos % (Auto) Baso % (Auto) Neut # (Auto) Lymph # (Auto) Rincon # (Auto) Eos # (Auto) Baso # (Auto) WBC Differential Differential Comment PT INR APTT Puncture Site Right radial Patient Temperature 98.6 O2 Saturation 97 ABG pH 7.40 ABG pCO2 52 H* ABG pO2 134 H ABG HCO3 31 H ABG O2 Content 14.2 ABG Base Excess 6.5 H ABG Methemoglobin 1.4 Lico Test Present Hemoglobin 10.3 L Carboxyhemoglobin 0.7 O2 Delivery Device Ventilator Vent Setting Cpap+5/ps+5 Inspired O2 45 Critical Value Yes Sodium Potassium Chloride Carbon Dioxide Anion Gap BUN Creatinine Estimated GFR POC Glucose 120 H 64 L Random Glucose Calcium Phosphorus Magnesium Total Bilirubin AST ALT Alkaline Phosphatase Ammonia Total Protein Albumin Vancomycin Trough 02/05/18 02/05/18 02/05/18 00:13 04:05 04:05 WBC 12.8 H RBC 2.89 L Hgb 9.9 L Hct 29.2 L MCV 100.9 H MCH 34.4 H MCHC 34.1 RDW 15.0 Plt Count 249 MPV 8.1 Neut % (Auto) Lymph % (Auto) Rincon % (Auto) Eos % (Auto) Baso % (Auto) Neut # (Auto) Lymph # (Auto) Rincon # (Auto) Eos # (Auto) Baso # (Auto) WBC Differential Differential Comment PT INR APTT Puncture Site Patient Temperature O2 Saturation ABG pH ABG pCO2 ABG pO2 ABG HCO3 ABG O2 Content ABG Base Excess ABG Methemoglobin Lico Test Hemoglobin Carboxyhemoglobin O2 Delivery Device Vent Setting Inspired O2 Critical Value Sodium 142 Potassium 3.1 L Chloride 98 Carbon Dioxide 40.0 H Anion Gap 4 L BUN 15 Creatinine 0.57 Estimated GFR Greater than 89 POC Glucose 127 H Random Glucose 116 H Calcium 8.0 L Phosphorus Magnesium 1.4 L Total Bilirubin 0.7 AST 11 L ALT 19 Alkaline Phosphatase 17 L Ammonia Total Protein 5.5 L D Albumin 2.8 L D Vancomycin Trough 02/05/18 02/05/18 02/05/18 05:18 11:36 17:45 WBC RBC Hgb Hct MCV MCH MCHC RDW Plt Count MPV Neut % (Auto) Lymph % (Auto) Rincon % (Auto) Eos % (Auto) Baso % (Auto) Neut # (Auto) Lymph # (Auto) Rincon # (Auto) Eos # (Auto) Baso # (Auto) WBC Differential Differential Comment PT INR APTT Puncture Site Patient Temperature O2 Saturation ABG pH ABG pCO2 ABG pO2 ABG HCO3 ABG O2 Content ABG Base Excess ABG Methemoglobin Lico Test Hemoglobin Carboxyhemoglobin O2 Delivery Device Vent Setting Inspired O2 Critical Value Sodium Potassium Chloride Carbon Dioxide Anion Gap BUN Creatinine Estimated GFR POC Glucose 113 H 218 H 158 H Random Glucose Calcium Phosphorus Magnesium Total Bilirubin AST ALT Alkaline Phosphatase Ammonia Total Protein Albumin Vancomycin Trough Result Diagrams: 02/05/18 04:05 02/05/18 04:05 Microbiology: Microbiology 02/02/18 12:56 Acid Fast Bacilli Smear - Final Fluid - Pleural fluid No acid fast bacilli seen 02/02/18 02:40 Aerobic Blood Culture - Preliminary Blood - Peripheral No growth in 3 days Anaerobic Blood Culture - Preliminary No growth in 3 days 02/02/18 02:35 Aerobic Blood Culture - Preliminary Blood - Peripheral Staphylococcus epidermidis Anaerobic Blood Culture - Preliminary No growth in 3 days 02/02/18 12:56 Gram Stain - Final Fluid - Pleural fluid Body Fluid Culture - Final No growth in 72 hours (aerobically and anaerobically) 02/02/18 05:30 Gram Stain - Final Sputum - Endotracheal Sputum Culture - Final Rare growth normal respiratory gene 02/02/18 00:55 Urine Culture - Final Catheterized Urine No growth in 48 hours 02/02/18 12:56 Fungal Smear - Final Fluid - Pleural fluid No fungal elements seen Imaging: Abdomen/Pelvis CT 02/02/18 00:00 CONCLUSION: 1. No dilated loops of small or large bowel and no evidence of ascites. 2. Large right and moderate size left pleural effusion. 3. Probable layering sludge in the gallbladder. Chest CT 02/02/18 00:00 CONCLUSION: 1. Bilateral pleural effusions, large on the right and moderate on the left. 2. Multi segmental consolidation in the right lung and scattered areas of subsegmental consolidation in the left lung. Chest X-Ray 02/02/18 00:00 CONCLUSION: Placement of right-sided chest tube with small right pneumothorax present. Improved right lung consolidation and effusion since chest tube placement. Endotracheal tube, nasogastric tube and left central line unchanged. Chest X-Ray 02/02/18 00:29 CONCLUSION: 1. ET tube tip in good position. 2. Consolidative infiltrates in the right upper and bilateral lower lungs. Head CT 02/02/18 00:29 CONCLUSION: 1. No acute findings in the brain. 2. Age-appropriate atrophy. . Cervical Spine CT 02/02/18 00:30 CONCLUSION: 1. No evidence of fracture or compression deformity. 2. Moderate severity degenerative changes throughout the cervical spine similar to recent MRI. 3. Right pleural effusion and areas of consolidation in the right upper lung. Chest X-Ray 02/02/18 02:37 CONCLUSION: Central line in good position. No evidence of pneumothorax. Chest X-Ray 02/02/18 14:46 CONCLUSION: Right-sided pneumothorax is increased in size. Bilateral infiltrates. Chest X-Ray 02/02/18 16:31 CONCLUSION: Placement of additional small caliber right chest tube with resolution of previous right pneumothorax. Subcutaneous air in the right chest wall. Chest X-Ray 02/03/18 07:33 CONCLUSION: 1. 2 right chest tubes remain present and no pneumothorax is visualized. 2. Stable right upper and midlung zone airspace consolidation and left basilar pleural-parenchymal opacity. Abdomen X-Ray 02/04/18 00:00 CONCLUSION: Nasogastric tube tip projects over stomach. No free air identified. Chest X-Ray 02/04/18 06:00 CONCLUSION: Stable right upper and left lower lung consolidation. Chest X-Ray 02/05/18 06:00 CONCLUSION: No significant change. Procedures: 02/02: Endotracheal intubation 02/02: Central venous access [facility] 02/02: Right chest tube placement 20 Filipino 02/02: Right anterior pigtail chest tube placement . Patient/Family Conference Present at Family Conference: Spoke to her daughter, Aarti Obregon at bedside and in conference room. Reviewed clinical findings, past medical, surgical, social, psychosocial history. Discussed palliative care purpose, focus and the below listed items. Reviewed mother's goals of care previously stated. Per my discussion with her daughter, aggressive interventions would be against her mother's wishes. She has discussed this with her father, the patient's ex-, who is a surgeon as well as her 2 sisters who are both nurses and they are all in agreement that aggressive care would be against the patient's wishes and given her age and comorbidities would exacerbate her suffering. She has previously been made a DO NOT RESUSCITATE status and at this time the daughter would like to speak with hospice regarding transfer to the [facility]. . Family Conference Location: Bedside, Consult Room Issues Discussed: * Palliative care role, purpose, approach * Additional medical, psychosocial, and spiritual history * Patients general health, functional status, and cognitive changes in the months leading up to the current hospitalization * Patient/family understanding of the current medical problems * Patient/family understanding of prognosis * Patients goals of care as best understood from advance directives and/or conversations and/or values * Current medical treatment options and benefits/burdens of those options * Likely scenarios comparing ongoing aggressive care with a transition to comfort measures only * Questions answered to the best of my ability * Palliative care contact information provided Assessment and Plan - Symptom Scale (1) Dyspnea 0-10 Scale: Unable to quantify (2) Weakness 0-10 Scale: Unable to quantify (3) Dysphasia 0-10 Scale: Unable to quantify Pertinent Non-Medical Issues: Psychosocial: She was born in the [place] and has 3 children. She is from her ex- who is a surgeon and is assisting the children in decision- making. She was moved to [place] a few years ago by her daughter Aarti. Spiritual: Claims Processor available. Legal: Aarti states that power of district attorney paperwork, including Medical power of district attorney have been completed and are at the sde's office waiting to be picked up. I did provide her with the fax number for [facility] to have her sde fax a copy of the healthcare power of district attorney paperwork. Ethical issues impacting care: None noted. . Important Contacts: Daughter:Aarti Obregon . Prognosis: Her prognosis is poor. She is 87 with a poor ejection fraction, recurrent pneumonia, recently extubated to 3 L, now requiring 100% nonrebreather. She has dysphasia and is failing swallow evaluations making aspiration pneumonia a likely possibility. The family is not in favor of artificial sustenance or aggressive measures as this is inconsistent with the patient's wishes. The family wishes comfort care and she will be transferred to hospice later today. . Code Status: No Code DNR Plan: PLAN: Legal decision maker: Patient is not capacitated for decision-making and it is uncertain that she will ever become capacitated again. Her daughter Aarti states she is the healthcare surrogate and we are awaiting paperwork which she will bring in. Goals: Comfort oriented. CODE STATUS: DO NOT RESUSCITATE SYMPTOMS: * Weakness: Likely multifactorial to include sepsis, age, comorbidities and sedentary behavior. This is likely a factor in her dysphasia and dyspnea. She was transferred to [facility] for rehabilitation on her day of admission but does not appear to be rehabilitative will at this time. * Dyspnea: Multifactorial to include large pleural effusion, congestive heart failure and atrial fibrillation with rapid ventricular response. She was extubated 24 hours ago and is already requiring a 100% nonrebreather mask. She is likely to continue to fail from a respiratory standpoint. Plan to transfer to [facility] for hospice care. * Dysphasia: She is failing her swallow evaluations and given her history of recurrent pneumonia, aspiration is a significant concern. Family is not in favor of artificial feeding and would not wish to put the patient through any further aggressive interventions which are likely to prolong her suffering. SUMMARY This is an 87-year-old frail female with recurrent pneumonia, healthcare versus community versus aspiration. She is currently requiring increasing amounts of oxygen to maintain saturation and is likely to continue to fail from a respiratory standpoint. She remains in atrial fibrillation with rapid ventricular response exacerbating her dyspnea. She is having increasingly frequent hospitalizations having been discharged from [facility] and readmitted to [facility] within 4 hours. She would be hospice appropriate if goals were consistent. Daughter has requested a hospice consultation with plans to transfer patient to [facility] today. Palliative care will continue to follow the patient during hospital course as condition evolves, to assist patient/decision-maker with understanding of their medical conditions, weighing benefits/burdens of treatment options, for clarification of goals of treatment. Additionally will assist with any symptoms of palliative concern. . Appreciation Thank you for the opportunity to participate in the care of Crystal Gannon. Attestation Attestation: To help prompt me to consider important information that might be impacting today's encounter and assessment, information from prior notes written by myself or my colleagues may have been "brought forward" into today's note. My signature on this note, however, is an attestation that I personally performed the exam, history, and/or decision-making noted today, and, unless otherwise indicated, the interactions with patient, family, and staff as well as the review of records all occurred today. I also attest that the listed assessment and stated plan reflect my best clinical judgment today based on the combination of historical information, prior notes, and today's exam/ interactions. When time spent is documented, it refers only to time spent today by the signer, or if indicated, combined time spent today by collaborating physician/nurse practitioner. .
[2018-02-05] MEDS ORDERED: Morphine Inj 4 MG/ML Vial IV.PUSH ONE (20:00)
[2018-02-05 21:38] VITALS: BP 152/90; PULSE 128; RESP 37; TEMP 98.3
== END 2018-02-05 21:00 | disposition hospice, inpatient (51) ==
LOC: NEPE 00:04 → NEDA 01:13 → HIMC 04:15
PROVIDERS: ADMIT Emergency Medicine; ATTEND Emergency Medicine